=== PATIENT | male | born 1955 | race Caucasian/White ===

== ENCOUNTER 2020-09-09 11:25 | Emergency (ER) | payer MEDICARE, OTHER, SELFPAY ==
[2020-09-09 11:32] VITALS: BP 102/59; PULSE 82; RESP 18; TEMP 36.7; O2SAT 94; BMI 38.0
[2020-09-09 11:51] VITALS: BP 195/104; PULSE 77; RESP 18; TEMP 37.3; O2SAT 94; BMI 35.1
[2020-09-09 12:29] LABS: UTC Strep Screen (Rapid) Positive (Negative)
--- NOTE | 2020-09-09 12:37 | HMH.EDUTC ---
[facility] [place] Clinical Impression: Strep throat Back pain Qualifiers: Back pain location: low back pain Chronicity: acute Back pain laterality: midline Sciatica presence: without sciatica Qualified Code(s): M54.5 - Low back pain Disposition: Home, Self-Care Condition on Discharge: Good Additional Instructions: Start antibiotics today be sure to take it as ordered with the full length of time although you should start feeling better in 24-48 hours. Change toothbrush and toothpaste 24-48 hours after starting antibiotics Tylenol or Motrin as needed for fever or pain Encourage fluids, water, Gatorade, Powerade, try cold fluids, popsicles, ice cream will make it feel better You are contagious for 24 hours. Avoid kissing anyone, no eating or drinking after anyone. You are contagious. Follow-up the ER for new or worsening symptoms or no noticeable improvement over the next 24-48 hours. Follow-up with PCP this week. continue kelfex Prescriptions: predniSONE [Prednisone 20mg Tab] 20 mg PO BID #10 tab Transmission Status: Pending to [id number] Referrals: Gurmeet Dolan MD [Primary Care Provider] - Time of Disposition: 13:05 Medical Decision Making - Marc Inquiry Pt receiving controlled substance: No Vital Signs: 09/09/20 11:32 09/09/20 11:51 Temperature 98.1 F 99.2 F Temperature Source Oral Oral Pulse Rate [Left Radial] 82 77 Respiratory Rate 18 18 Blood Pressure [Right Arm] 102/59 L 195/104 H Blood Pressure Mean [Right Arm] 73 134 Blood Pressure Source [Right Arm] Automatic Cuff Blood Pressure Position [Right Arm] Sitting 02 Sat by Pulse Oximetry 94 L 94 L Oxygen Delivery Method Room Air Room Air - Lab Data Lab Results 09/09/20 11:58: Strep Scn Rapid [facility] Positive A 09/09/20 12:42: Urine Color Yellow, Urine Appearance Clear, Urine pH 6.0, Ur Specific Simms 1.010, Urine Protein Negative, Urine Glucose (UA) Negative, Urine Ketones Negative, Urine Blood Negative, Urine Nitrate Negative, Urine Bilirubin Negative, Urine Urobilinogen 2, Ur Leukocyte Esterase Negative Orders (Tests/Meds): ORDERS Category Date Time Status Covid-19 Nasal PCR ([facility]) Routine Lab 09/09/20 12:00 Received [facility] H[place] - General Chief complaint: Urgent Treatment Center Stated complaint: lower back pain Time Seen by Provider: 09/09/20 12:58 Mode of Arrival: Ambulatory Source of Information: Patient Limitations: No Limitations Description of Symptoms (Recalled from Triage Doc. by RN): pt wants to be seen for lower back pain that he is unable to get any relief from. no injury has occured. its dull and achey pain 8/10. pt took tylenol this am without relief. pt is also running a low grade fever and said he had a sore throat the past two days, as well as, a lingering sinus LOWERY. HEENT Symptoms (Recalled from RN notes): No Resp Symptoms (Recalled from RN notes): No Skin Symptoms (Recalled from RN notes): No MS Symptoms (Recalled from RN notes): Yes (lower back pain) Functional Status (Recalled from RN notes): na - History of Present Illness Provider Complaint: 64 yr old male presents for low back pain and he is unable to get any relief from pain. no injury has occured. its dull and achey pain 8/10. pt took tylenol this am without relief.pt states he is also running a low grade fever and said he had a sore throat the past two days, as well as, a lingering sinus LOWERY. pt states he has taken keflex for ingrown toe nail - Related Data Previous Rx's Medication Instructions Recorded omeprazole 20 mg capsule,delayed 20 mg PO DAILY #90 cap 04/17/20 release colchicine 0.6 mg capsule 0.6 mg PO DAILY PRN #20 cap 07/05/20 sulfamethoxazole 800 1 tab PO BID 10 Days #20 tab 09/07/20 mg-trimethoprim 160 mg tablet predniSONE [Prednisone 20mg 20 mg PO BID #10 tab 09/09/20 Tab] Allergies Allergy/AdvReac Type Severity Reaction Status Date / Time Penicillins [PENICILLINS] Allergy Mild Verified 09/09/20
[2020-09-09 12:43] LABS: Apearance,Urine Clear (Clear); Color,Urine Yellow (Yellow)
[2020-09-09 12:44] LABS: Bilirubin,Urine Negative (Negative); Blood, Urine Negative (Negative); Glucose,Urine (UA) Negative (Negative); Ketones,Urine Negative (Negative); Protein,Urine Negative (Negative); UTC Leukocyte Esterase,Urine Negative (Negative); UTC Nitrate,Urine Negative (Negative); Urobilinogen,Urine 2 EU/dl (0.2)
[2020-09-09 13:08] VITALS: BP 182/101; PULSE 81; RESP 18; TEMP 37.2
== END 2020-09-09 13:10 | disposition home or self-care (01) ==
PROVIDERS: Emergency Provider Nurse Practitioner Family; PCP Emergency Medicine
DX: Z20.822 Contact with and (suspected) exposure to COVID-19 (principal); J02.0 Streptococcal pharyngitis; M54.5 Low back pain; K21.9 Gastro-esophageal reflux disease without esophagitis; I10 Essential (primary) hypertension; Z79.899 Other long term (current) drug therapy
CPT/HCPCS: G0463; 81003; 87880; 99202; U0003

== ENCOUNTER 2020-09-15 13:07 | Emergency (ER) | payer MEDICARE, OTHER, SELFPAY ==
[2020-09-15 13:24] VITALS: BP 158/92; PULSE 84; RESP 16; TEMP 36.9; O2SAT 95; BMI 35.1
--- NOTE | 2020-09-15 13:33 | XR_ITS ---
PROCEDURE: XR CHEST 2V CLINICAL HISTORY: fever, cough COMPARISON: CR CXR1 CHEST-PORTABLE from 08/01/2016 FINDINGS: The cardiomediastinal silhouette and pulmonary vascularity are within normal limits. The lungs are clear without infiltrates, suspicious nodules, or pleural effusions. Degenerative changes of the visualized thoracic spine.. IMPRESSION: No acute findings. Dictated by: Aziza West 09/15/2020 14:56 Aziza West in [place] 09/15/2020 14:56
[2020-09-15 13:40] LABS: UTC Strep Screen (Rapid) Positive (Negative)
--- NOTE | 2020-09-15 13:53 | HMH.EDUTC ---
[facility] [place] Clinical Impression: Strep throat Disposition: Home, Self-Care Condition on Discharge: Good Instructions: Strep Throat, DI for Strep Throat Additional Instructions: Drink plenty of fluids. Take tylenol or ibuprofen for pain or fever. Take the medications as directed. Follow up with your regular doctor. GO TO THE ER FOR ANY WORSENING SYMPTOMS Throw your tooth brush away and get a new one in a day or so after starting the medications. Prescriptions: Cefdinir [Omnicef 300mg Capsule] 300 mg PO BID #20 cap Transmission Status: Received by [id number] Referrals: Gurmeet Dolan MD [Primary Care Provider] - Time of Disposition: 13:56 Medical Decision Making - Medical Records Medical records reviewed: No: I reviewed the patient's medical records. - Marc Inquiry Pt receiving controlled substance: No Vital Signs: 09/15/20 13:24 09/15/20 14:05 Temperature 98.4 F 98 F Temperature Source Oral Pulse Rate 87 Pulse Rate [Right] 84 Respiratory Rate 16 18 Blood Pressure 146/87 H Blood Pressure [Right Arm] 158/92 H Blood Pressure Mean [Right Arm] 114 Blood Pressure Source [Right Arm] Automatic Cuff Blood Pressure Position [Right Arm] Sitting 02 Sat by Pulse Oximetry 95 Oxygen Delivery Method Room Air - Lab Data Lab results reviewed: Yes: I reviewed the patient's lab results. Lab Results 09/15/20 13:28: Strep Scn Rapid Clinic Positive A [facility] [place] - General Stated complaint: fever Time Seen by Provider: 09/15/20 13:53 Mode of Arrival: Ambulatory Source of Information: Patient Limitations: No Limitations Description of Symptoms (Recalled from Triage Doc. by RN): pt c/o abd pain, N/V, LOWERY, fever and high bp. HEENT Symptoms (Recalled from RN notes): Yes (LOWERY) Resp Symptoms (Recalled from RN notes): No Skin Symptoms (Recalled from RN notes): No MS Symptoms (Recalled from RN notes): No Functional Status (Recalled from RN notes): na - History of Present Illness Provider Complaint: He states that he was diagnosed with strep throat here about 1 week ago. He has finished the medication that he was prescribed. He states that he is no better. - Related Data Previous Rx's Medication Instructions Recorded omeprazole 20 mg capsule,delayed 20 mg PO DAILY #90 cap 04/17/20 release colchicine 0.6 mg capsule 0.6 mg PO DAILY PRN #20 cap 07/05/20 sulfamethoxazole 800 1 tab PO BID 10 Days #20 tab 09/07/20 mg-trimethoprim 160 mg tablet predniSONE [Prednisone 20mg 20 mg PO BID #10 tab 09/09/20 Tab] Cefdinir [Omnicef 300mg Capsule] 300 mg PO BID #20 cap 09/15/20 Allergies Allergy/AdvReac Type Severity Reaction Status Date / Time Penicillins [PENICILLINS] Allergy Mild Verified 09/09/20 11:57 - Worker's Comp Is this a Worker's Comp case?: No [facility] History - Hepatitis A Screen Drug use history?: No High risk sexual behaviors?: No History of sexually transmitted infection?: No Currently employed?: No Childcare worker?: No Do you have indoor plumbing?: Yes Do you have electricity?: Yes Attestation statement:: This patient has been screened for Hepatitis A risk factors. I have reviewed the patient's past medical history: Yes Medical History: Reports:: Gastroesophageal Reflux Disease(GERD), Hypertension Comment: Gout Laterality Cases: Bilateral: Tonsillectomy Other Surgeries: Yes: Other Amputation: No Fractures: Yes - Social History Smoking Status: Unknown if ever smoked Alcohol Intake: never Alcohol Intake Frequency:: a few times a week Substance Use Type: denies use Occupational Status: other Family Hx:: Cancer, Hypertension, Coronary Artery Disease ROS Obtained: Yes All systems reviewed & no additional complaints - Constitutional Constitutional: Reports chills, Reports fever(s), Reports poor appetite, Reports malaise - Eyes Eyes: Denies eye discharge - ENT Ears, Nose, Mouth, and Throat: Reports as per HPI - Cardi
[2020-09-15 14:05] VITALS: BP 146/87; PULSE 87; RESP 18; TEMP 36.6
== END 2020-09-15 14:05 | disposition home or self-care (01) ==
PROVIDERS: Emergency Provider Nurse Practitioner Family; PCP Emergency Medicine
DX: J02.0 Streptococcal pharyngitis (principal)
CPT/HCPCS: G0463; 71046; 87880; 99202

== ENCOUNTER → 2020-09-26 14:57 | Outpatient (CLI) | payer MEDICARE, OTHER, SELFPAY ==
--- NOTE | 2020-09-26 15:19 | XR_ITS ---
PROCEDURE: XR CHEST 2V CLINICAL HISTORY: SOA Shortness of air with weakness COMPARISON: CR CXR1 CHEST-PORTABLE from 08/01/2016 CR XR CHEST 2V from 09/15/2020 FINDINGS: The cardiomediastinal silhouette and pulmonary vascularity are within normal limits. The lungs are clear without infiltrates, suspicious nodules, or pleural effusions. No acute bony abnormalities. IMPRESSION: No acute findings. Dictated by: Christian Guzman MD 09/26/2020 16:02 Christian Guzman MD in [place] 09/26/2020 16:02
[2020-09-26 19:00] LABS: Basophils # 0.1 K/mm3 (0-0.2); Basophils % 0.8 % (0.1-2.0); Eosinophils # 0.1 K/mm3 (0.0-0.4); Eosinophils % 1.6 % (0.1-12.0); Hematocrit 51.1 % (42.0-52.0); Lymphocytes # 2.4 K/mm3 (0.7-4.5); Lymphocytes % 26.7 % (10-50); Mean Corpuscular HGB Conc 33.4 g/dL (31.8-35.4); Mean Corpuscular Hemoglobin 30.4 pg (27.0-31.2); Mean Corpuscular Volume 91.2 fl (80-94); Mean Platelet Volume 8.1 fl (7.4-10.4); Monocytes # 0.6 K/mm3 (0.1-1.0); Monocytes % 6.5 % (1.7-9.3); Neutrophils # 5.8 K/mm3 (1.8-7.8); Neutrophils % 64.4 % (37.0-80.0); Platelet Count 264 K/mm3 (142-424); Red Cell Distribution Width 12.8 % (11.5-17.5); White Blood Count 9.1 K/mm3 (4.8-10.8)
[2020-09-26 19:33] LABS: Chloride 102 mmol/L (98-107); Potassium 4.7 mmoL/L (3.5-5.1); Sodium 138 mmol/L (136-145)
[2020-09-26 19:35] LABS: Alanine Aminotransferase 57 U/L (12-78); Albumin Level 4.4 g/dl (3.5-5.0); Albumin/Globulin Ratio 1.8 (1.1-1.8); Alkaline Phosphatase 75 U/L (38-126); Anion Gap 12.7 mEq/L (5-15); Aspartate Amino Transferase 52 U/L (17-59); Bilirubin,Total 0.7 mg/dl (0.2-1.3); Blood Urea Nitrogen 21 mg/dl (9-20); Carbon Dioxide 28 mmol/L (22.0-30.0); Estimated Glomerular Filt Rate 67 ml/min (>60); GFR (African American) 81 ML/MIN (>60); Globulin 2.5 g/dL (1.3-3.2); Total Protein,Serum 6.9 g/dl (6.3-8.2)
[2020-09-26 19:36] LABS: Calcium 9.5 mg/dl (8.4-10.2); Chol/HDL Ratio 4.2 (1-3.5); Cholesterol 174 mg/dl (140-200); Glucose 125 mg/dl (74-100); HDL Cholesterol 41 mg/dl (40-60); Triglycerides 147 mg/dl (30-150); VLDL Cholesterol 29 mg/dL (0-40)
[2020-09-26 19:47] LABS: Direct LDL Cholesterol 111.78 mg/dL (100-129)
[2020-09-26 19:52] LABS: T4 (Thyroxine) 7.6 ug/dl (5.53-11.0)
[2020-09-26 20:06] LABS: Thyroid Stimulating Hormone 2.33 uIU/mL (0.465-4.68)
[2020-09-29 06:19] LABS: PSA, Free 0.23 ng/mL; Prostate Specific Ag 0.8 ng/mL (0.0-4.0)
== END ==
PROVIDERS: PCP Emergency Medicine; Visit Provider Nurse Practitioner Family
DX: R06.02 Shortness of breath (principal); I10 Essential (primary) hypertension; J02.0 Streptococcal pharyngitis; R53.83 Other fatigue; R69 Illness, unspecified; R42 Dizziness and giddiness; Z20.822 Contact with and (suspected) exposure to COVID-19
CPT/HCPCS: 71046; 80053; 80061; 84153; 84154; 84436; 84443; 85025; 93225; 93226; U0003

== ENCOUNTER → 2020-10-05 14:16 | Outpatient (CLI) | payer MEDICARE, OTHER, SELFPAY ==
--- NOTE | 2020-10-05 14:16 | CA_ITS ---
APPROVED REPORT Exam: Exercise Treadmill Technologist: Shelby Ferguson, Ht: 5 ft 11 in Wt: 252 lbs BSA: 2.33 m2 HR: 71 bpm BP: 161/91 mmHg Rhythm: NSR/NSST/ABNS Medical History Medical History: Hyperlipidemia Medications: ColCHIcine,,,,, OmeprazLE,,,,, Stress Test Details Test: Roosevelt HR Resting HR: 94 bpm Max Heart Rate (APMHR): 154.509034 bpm Max HR Achieved: 130 bpm Target HR (85% APMHR): 130.280053 bpm % of APMHR: 84.42 Recovery HR: 93 bpm BP Resting BP: 161/91 mmHg Max BP: 212/94 mmHg Recovery BP: 163.0/96.0 mmHg ECG Resting ECG: NSR/NSST/ABNS Clinical Exercise duration: 05:24 min Highest Stage Achieved: Exercise capacity: 7.0 METs Stress ECG Conclusion Pt excerised 5:24 on Roosevelt Protocol with max HR 130 which is 84%PM for age. Max BP 212/94. MET 7.0. Test stopped due to SOA and fatigue. No CP. Occ isolated PVC. Within normal ST response to excerise. Normal GXT to HR achieved. GXT only, no images. Test Summary REST . . . . . . . Sitting REST . . . . . . . Standing REST 06:00 0.0 0.0 94 . 161/ 91 . . Stage 1 01:00 10.0 1.7 96 . . . . Stage 1 02:00 10.0 1.7 109 . . . . Stage 1 03:00 10.0 1.7 106 . 178/ 90 . . Stage 2 01:00 12.0 2.5 120 . . . . Stage 2 02:00 12.0 2.5 127 . . . . Stage 2 02:24 12.0 2.5 130 . 212/ 94 . Stop exercise at 05:24 RECOVERY 01:00 0.0 0.0 113 . . . . RECOVERY 02:00 0.0 0.0 86 . 163/ 96 . . RECOVERY 03:00 0.0 0.0 85 . 188/100 . . RECOVERY 04:00 0.0 0.0 84 . 188/100 . . RECOVERY 05:00 0.0 0.0 81 . 163/ 99 . . RECOVERY 05:58 0.0 0.0 79 . 152/101 . . Electronically signed by : Fer Roman, 10/06/2020 19:09:02
== END ==
PROVIDERS: PCP Emergency Medicine; Visit Provider Nurse Practitioner Family
DX: R42 Dizziness and giddiness (principal); R06.02 Shortness of breath; R53.1 Weakness
CPT/HCPCS: 93017

== ENCOUNTER → 2020-10-11 14:15 | Outpatient (CLI) | payer MEDICARE, OTHER, SELFPAY ==
--- NOTE | 2020-10-11 14:17 | CA_ITS ---
APPROVED REPORT EXAM: Comprehensive 2D, Doppler, and color-flow Echocardiogram Facilities Maintenance Engineer: Cindi Melara RVT Ht: 5 ft 11 in Wt: 252lbs BSA: 2.33 BP: 140/80 mmHg Indications: SOA,DIZZINESS,GERD 2D Dimensions LVOT 1.93 cm (M/F) 1.5-2.5 LA Volume 30.70 mL LA Volume Index 13.23 mL/m2 (M/F) 16-34 M-Mode Dimensions RVDd 2.72 cm (0.9-2.6) LA Diam 4.22 cm (1.9-4.0) LVDd 4.17 cm (3.5-5.7) Ao Diam 2.55 cm (2.0-3.7) LVDs 2.72 cm (3.5-5.7) IVSd 1.38 cm (0.6-1.1) PWd 1.24 cm (0.6-1.1) EF (Teich) 64.40% FS 34.80% EDV (Teich) 77.30 mL TAPSE 2.42 (<1.7) ESV (Teich) 27.50 mL LV Diastology E Decel Time 300.00 (160-240 msec) E/A Ratio 0.6 MED E' 5.20 (< 7 cm/sec) E'/MED E' Ratio 8.21 (>14) LAT E' 6.70 (<10 cm/sec) E/LAT E' Ratio 6.37 (>14) Mitral Valve MV E Max Adan. 43.00 (40-130 cm/s) MV A Velocity 73.00 (40-130 cm/s) E/A Ratio 0.59 MV Decel. Time 300.00 (160-240 ms) MV PHT 88.00 ms Pulmonary Valve PV Peak Velocity 86.00 (50-150 cm/s) Tricuspid Valve TR P. Velocity 234.00 cm/s RAP Estimate 10.00 mmHg RVSP 31.90 mmHg Left Ventricle Left atrium is mildly enlarged, left ventricle is normal size, mild concentric left ventricular hypertrophy, visually estimated ejection fraction 55% with no regional wall motion abnormality, grade 1 diastolic dysfunction seen without tissue Doppler evidence of raise left atrial pressure. Right Ventricle Right atrium is normal size, right ventricle qualitatively mildly enlarged with normal contractility. Aortic Valve Aortic valve is minimally thickened and calcified without Doppler evidence of aortic stenosis or aortic insufficiency. Mitral Valve Mitral valve grossly normal, there is trace mitral regurgitation. Tricuspid Valve Tricuspid valve grossly normal, there is trace tricuspid regurgitation Tricuspid regurgitation jet velocity is inadequate for calculation of the right ventricular systolic pressure. Pulmonic Valve Pulmonic valve is poorly visualized. Great Vessels Aortic root is normal size. Pericardium No significant pericardial effusion noted. Conclusion 1. Mildly enlarged left atrium, normal left ventricular size, mild concentric left ventricular hypertrophy, visually estimated ejection fraction 55% with no regional wall motion abnormality, grade 1 diastolic dysfunction seen without tissue Doppler evidence of raise left atrial pressure. 2. Mildly enlarged right ventricle with normal contractility. 3. Minimally thickened and calcified aortic valve without aortic stenosis or aortic insufficiency. 4. Trace mitral and tricuspid regurgitation. 5. No significant pericardial effusion noted. Electronically signed by : Ricardo Johnston, 10/12/2020 09:22:40
--- NOTE | 2020-10-11 14:17 | CA_ITS ---
APPROVED REPORT Stave Block Roller: Kate Soares RT(R) Laterality: Bilateral Indications: Dizziness post strep throat 1 month ago. Previous smoker Risk Factors Hypertension: Doppler Spectral Velocity Analysis ECA (R) 97.00/12.80 cm/s ECA (L) 98.00/14.20 cm/s dICA (R) 77.50/21.40 cm/s dICA (L) 64.20/21.80 cm/s Fco (R) 76.50/23.50 cm/s Fco (L) 71.10/21.00 cm/s pICA (R) 47.60/13.90 cm/s pICA (L) 86.80/23.20 cm/s dCCA (R) 65.50/15.40 cm/s dCCA (L) 76.30/12.70 cm/s pCCA (R) 75.10/14.80 cm/s pCCA (L) 99.50/15.00 cm/s Vert (R) 48.10/12.80 cm/s Vert (L) 31.70/6.40 cm/s ICA/CCA 1.18 ICA/CCA 1.14 Findings Duplex evaluation demonstrates stenosis of the right proximal internal carotid artery <20% with PSV <140 cm/sec, EDV <100 cm/sec, and IC/CC Ratio <4.0. Duplex evaluation demonstrates stenosis of the left proximal internal carotid artery <20% with PSV <140 cm/sec, EDV <100 cm/sec, and IC/CC Ratio <4.0. Conclusion Duplex evaluation demonstrates stenosis of the right proximal internal carotid artery <20% with PSV <140 cm/sec, EDV <100 cm/sec, and IC/CC Ratio <4.0. Duplex evaluation demonstrates stenosis of the left proximal internal carotid artery <20% with PSV <140 cm/sec, EDV <100 cm/sec, and IC/CC Ratio <4.0. Electronically signed by : Christian Guzman MD 10/11/2020 15:31:15
== END ==
PROVIDERS: PCP Emergency Medicine; Visit Provider Nurse Practitioner Family
DX: R06.02 Shortness of breath (principal); R42 Dizziness and giddiness
CPT/HCPCS: 93306; 93880

== ENCOUNTER → 2020-10-16 07:48 | Outpatient (CLI) | payer SELFPAY ==
--- NOTE | 2020-10-16 07:49 | CT_ITS ---
PROCEDURE: CT HEART W CALCIUM SCORE CLINICAL HISTORY: eval for CAD COMPARISON: No exams were available for comparison TECHNIQUE: Axial images obtained with sagittal and coronal reformats. All CT scans at the facility use one or more dose reduction, viz: automated exposure control, ma/kV adjustment per patient size (including targeted exams where dose is matched to indication, i.e. head), or iterative reconstruction technique. FINDINGS: Coronary artery calcifications core is 172. Moderate calcific plaque burden with high cardiovascular disease risk IMPRESSION: Moderate calcific plaque burden with high cardiovascular disease risk Dictated by: Christian Guzman MD 10/16/2020 10:42 Christian Guzman MD in [place] 10/16/2020 10:42
== END ==
PROVIDERS: PCP Emergency Medicine; Visit Provider Internal Medicine Cardiovascular Disease
DX: Z13.6 Encounter for screening for cardiovascular disorders (principal); R00.2 Palpitations; R42 Dizziness and giddiness; I48.0 Paroxysmal atrial fibrillation; I10 Essential (primary) hypertension; K21.9 Gastro-esophageal reflux disease without esophagitis; R53.1 Weakness; R53.83 Other fatigue; R55 Syncope and collapse
CPT/HCPCS: 75571

== ENCOUNTER → 2020-11-09 08:28 | Outpatient (CLI) | payer MEDICARE, OTHER, SELFPAY ==
[2020-11-09 08:57] LABS: Blood Urea Nitrogen 15 mg/dl (9-20); Calcium 9.4 mg/dl (8.4-10.2); Carbon Dioxide 30 mmol/L (22.0-30.0); Chloride 108 mmol/L (98-107); Estimated Glomerular Filt Rate 55 ml/min (>60); GFR (African American) 67 ML/MIN (>60); Glucose 134 mg/dl (74-100); Sodium 144 mmol/L (136-145)
[2020-11-09 09:06] LABS: NT Pro Brain Natriuretic Pep. 67.9 pg/mL (0-125)
== END ==
PROVIDERS: Visit Provider Internal Medicine Cardiovascular Disease
DX: E66.9 Obesity, unspecified (principal); G47.33 Obstructive sleep apnea (adult) (pediatric); I10 Essential (primary) hypertension; I48.0 Paroxysmal atrial fibrillation; R53.1 Weakness; R53.83 Other fatigue; R55 Syncope and collapse; R06.02 Shortness of breath; Z68.34 Body mass index [BMI] 34.0-34.9, adult; Z87.891 Personal history of nicotine dependence
CPT/HCPCS: 36415; 80048; 83880

== ENCOUNTER → 2020-11-15 10:17 | Outpatient (CLI) | payer MEDICARE, OTHER, SELFPAY ==
[2020-11-15 11:42] LABS: Blood Urea Nitrogen 17 mg/dl (9-20); Calcium 9.5 mg/dl (8.4-10.2); Carbon Dioxide 31 mmol/L (22.0-30.0); Chloride 105 mmol/L (98-107); Estimated Glomerular Filt Rate 67 ml/min (>60); GFR (African American) 81 ML/MIN (>60); Glucose 101 mg/dl (74-100); Sodium 140 mmol/L (136-145)
== END ==
PROVIDERS: Visit Provider Internal Medicine Cardiovascular Disease
DX: I10 Essential (primary) hypertension (principal); I48.0 Paroxysmal atrial fibrillation; K21.9 Gastro-esophageal reflux disease without esophagitis
CPT/HCPCS: 80048

== ENCOUNTER → 2020-11-21 13:20 | Outpatient (CLI) | payer MEDICARE, OTHER, SELFPAY | PROVIDERS: PCP Emergency Medicine; Visit Provider Specialist | DX: G47.33 Obstructive sleep apnea (adult) (pediatric) (principal) | CPT/HCPCS: G0399 ==

== ENCOUNTER → 2020-12-05 10:25 | Outpatient (POV) | payer MEDICARE, OTHER, SELFPAY | PROVIDERS: Visit Provider Dermatology | DX: Z00.00 Encounter for general adult medical examination without abnormal findings (principal) ==

== ENCOUNTER → 2021-05-15 10:54 | Outpatient (POV) | payer MEDICARE, OTHER, SELFPAY | PROVIDERS: Visit Provider Dermatology | DX: Z00.00 Encounter for general adult medical examination without abnormal findings (principal) ==

== ENCOUNTER → 2021-07-13 14:29 | Outpatient (CLI) | payer MEDICARE, OTHER, SELFPAY ==
--- NOTE | 2021-07-13 14:30 | MM_ITS ---
PROCEDURE INFORMATION: Exam: Right Diagnostic Breast Tomosynthesis Exam date and time: 07/13/2021 2:30 PM Age: 65 years old Clinical indication: Palpable abnormality in the right breast TECHNIQUE: Imaging protocol: Right Diagnostic tomosynthesis and 2D mammography including computer-aided detection (CAD) when performed. Unilateral or bilateral exam. COMPARISON: No relevant prior studies available. FINDINGS: MAMMOGRAPHY: The breast tissue is composed of scattered areas of fibroglandular density. The findings compatible with benign gynecomastia. A skin marker was placed over the palpable abnormality in the right upper inner quadrant. The spot compression views demonstrate predominantly adipose tissue. There is no stellate mass, architectural distortion or suspicious microcalcifications to suggest malignancy. No skin thickening or axillary adenopathy. IMPRESSION: Patient to return for right breast ultrasound for full evaluation of the patient's complaint of a palpable abnormality ASSESSMENT: BI-RADS Category 1: Negative
== END ==
PROVIDERS: PCP Emergency Medicine; Visit Provider Nurse Practitioner Family
DX: N64.59 Other signs and symptoms in breast (principal)
CPT/HCPCS: 77061; 77065; G0279

== ENCOUNTER → 2021-07-31 13:42 | Outpatient (CLI) | payer MEDICARE, OTHER, SELFPAY ==
--- NOTE | 2021-07-31 13:48 | US_ITS ---
PROCEDURE INFORMATION: Exam: US Right Breast, Complete Exam date and time: 07/31/2021 1:48 PM Age: 65 years old Clinical indication: Palpable abnormality in the right breast TECHNIQUE: Imaging protocol: Complete ultrasound of all four quadrants of the Right breast and the retroareolar regions, including ultrasound of the axilla when performed. COMPARISON: MG MM DIG MAMM DX UNILAT RT CAD 07/13/2021 2:30 PM FINDINGS: Breast: Sonographic images of the right breast including the retroareolar region, all 4 quadrants and the axilla do not demonstrate any solid or cystic masses. Benign retroareolar gynecomastia is present . No architectural distortion or acoustical shadowing. No skin thickening or axillary adenopathy. Other findings: Mammography performed 07/13/2021 did not demonstrate any suspicious findings. IMPRESSION: Palpable abnormality in the right breast corresponds both mammographically and sonographically to benign gynecomastia and benign adipose tissue. Further evaluation of a palpable abnormality should be based on clinical grounds regardless of radiographic findings or lack thereof. ASSESSMENT: BI-RADS Category 2: Benign
== END ==
PROVIDERS: PCP Emergency Medicine; Visit Provider Nurse Practitioner Family
DX: R92.8 Other abnormal and inconclusive findings on diagnostic imaging of breast (principal)
CPT/HCPCS: 76641

== ENCOUNTER 2021-08-09 19:18 | Emergency (ER) | payer MEDICARE, OTHER, SELFPAY ==
--- NOTE | 2021-08-09 19:15 | ECG_ITS ---
APPROVED REPORT Exam: Resting ECG HR:54 bpm ECG Measurements Heart Rate 54 AXES CA 178 P 62 QRSd 96 QRS 51 QT 420 T 64 QTc 405 Conclusion SINUS BRADYCARDIA BORDERLINE ECG UNCONFIRMED REPORT Electronically signed by : Fer Roman MD 08/10/2021 19:20:01
[2021-08-09 19:19] VITALS: BP 174/94; PULSE 52; RESP 22; TEMP 36.8; O2SAT 94; BMI 33.5
[2021-08-09 19:31] VITALS: BP 164/85; PULSE 58; RESP 21; O2SAT 95
--- NOTE | 2021-08-09 19:42 | XR_ITS ---
PROCEDURE INFORMATION: Exam: XR Chest Exam date and time: 08/09/2021 7:42 PM Age: 65 years old Clinical indication: Pain; Left-sided; Patient HX: Feels like heart is being squeezed all day today. ; Additional info: Chest pain TECHNIQUE: Imaging protocol: XR of the chest. Views: 2 views. Total images: 2 COMPARISON: CR XR CHEST 2V 09/26/2020 3:20 PM FINDINGS: Lungs: Low lung volumes. No gross pulmonary infiltrates or edema pattern. Pleural spaces: No pleural effusion. No pneumothorax. Heart/Mediastinum: Heart size normal. Question mild prominence of the central pulmonary arteries which may indicate pulmonary arterial hypertension. No tracheal/mediastinal shift. Diaphragm: Mild chronic elevation of the right hemidiaphragm. Bones/joints: No acute osseous abnormalities. IMPRESSION: 1. No acute process is evident. 2. Question mild prominence of the central pulmonary arteries which may indicate pulmonary arterial hypertension. 3. Low lung volumes and mild chronic elevation of the right hemidiaphragm.
--- NOTE | 2021-08-09 19:56 | HMH.EDCP ---
ED Disposition Clinical Impression: Unstable angina pectoris Disposition: Home, Self-Care Condition on Discharge: Good Instructions: DI for Angina Additional Instructions: see card for follow up and recheck ed if any problems Referrals: Gurmeet Dolan MD [Primary Care Provider] - Hadley Maharaj MD [Staff Physician] - - Critical Care Critical Care Time: No Attestation: On 08/09/21, the high probability of a clinically significant, sudden or life threatening deterioration of the following system(s) required my full and direct attention, intervention and personal management. The time I documented below is in addition to time spent performing reported procedures but includes the following listed in this critical care notation. Medical Decision Making - Medical Records Medical records reviewed: Yes: I reviewed the patient's medical records. - Marc Inquiry Pt receiving controlled substance: No Vital Signs: 08/09/21 19:19 Temperature 98.2 F Temperature Source Oral Pulse Rate [Right Brachial] 52 L Respiratory Rate 22 Blood Pressure [Right Arm] 174/94 H Blood Pressure Mean [Right Arm] 120 Blood Pressure Source [Right Arm] Automatic Cuff Blood Pressure Position [Right Arm] Sitting 02 Sat by Pulse Oximetry 94 L Oxygen Delivery Method Room Air - Lab Data Lab results reviewed: Yes: I reviewed the patient's lab results. Lab Results 08/09/21 19:22: WBC 8.5, RBC 5.27, Hgb 16.5, Hct 48.5, MCV 92.1, MCH 31.3 H, MCHC 33.9, RDW 12.9, Plt Count 222, MPV 7.6, Neut % (Auto) 55.7, Lymph % (Auto) 33.2, [place] % (Auto) 7.9, Eos % (Auto) 2.4, Baso % (Auto) 0.8, Neut # (Auto) 4.7, Lymph # (Auto) 2.8, [place] # (Auto) 0.7, Eos # (Auto) 0.2, Baso # (Auto) 0.1, ESR 7 08/09/21 19:22: Sodium 140, Potassium 4.3, Chloride 102, Carbon Dioxide 29, Anion Gap 13.3, BUN 21 H, Creatinine 1.40 H, Estimated Creat Clear 79, Estimated GFR 51 L, Est GFR ( Amer) 61, Glucose 100, Calcium 9.0, Troponin I < 0.01, C-Reactive Protein 2.5 08/09/21 19:22: Total Bilirubin 0.5, Direct Bilirubin 0.2, Conjugated Bilirubin 0.0, Indirect Bilirubin 0.3, Unconjugated Bilirubin 0.3, AST 68 H, ALT 61, Alkaline Phosphatase 72, Total Protein 6.6, Albumin 4.3 08/09/21 19:22: NT-Pro-B Natriuret Pep 42.6 Result diagrams: 08/09/21 19:22 08/09/21 19:22 Orders (Tests/Meds): ORDERS Category Date Time Status Troponin I Q3H Lab 08/09/21 22:45 Ordered Troponin I Q3H Lab 08/10/21 01:45 Ordered - Radiology Data #1 Image(s): Chest Image Reviewed: Yes I have reviewed radiologist's interpretation Preliminary Findings: Normal/NAD - ECG Data Tracing #1 Normal Sinus Rhythm: Yes Ischemic changes: non-specific ST-T wave changes - Physician Consults Physician Consulted: teddy Reason -: Pt condition Medical Decision Narrative: pt with prob angina and will have pt see card and add imdur needs ht cath - pt desires to see card as op Chest Pain HPI - General Chief Complaint: Chest Pain Stated Complaint: chest pain Time Seen by Provider: 08/09/21 19:56 Mode of Arrival: Family Vehicle Source of Information: Patient, Medical Record Limitations: No Limitations Description of Symptoms (Recalled from ER Triage Doc. by RN): Patient states after spending the day moving and working on stuff at home, he was sitting down trying to relax and approx 1 hour ago he started having left side anterior chest pain directly above his nipple line. When asked about radiation, he said not really, then said his right hand indirectly hurts intermittently along with this. denies n/v/d. states his breathing is different but not really soa. took an aspirin full strength prior to arrival. denies other comorbities other than hypertension. - History of Present Illness HPI narrative: pt with episode of chest pain - tightness and lasted about 30 min and now resolved - has card risk factors and compliant with meds - MD complaint: chest pain indicative of cardiac
[2021-08-09 20:06] LABS: Alanine Aminotransferase 61 U/L (12-78); Albumin Level 4.3 g/dl (3.5-5.0); Alkaline Phosphatase 72 U/L (38-126); Anion Gap 13.3 mEq/L (5-15); Aspartate Amino Transferase 68 U/L (17-59); Bilirubin,Direct 0.2 mg/dl (0.0-0.4); Bilirubin,Indirect 0.3 mg/dL (0.0-0.9); Bilirubin,Total 0.5 mg/dl (0.2-1.3); Bilirubin,Unconjugated 0.3 mg/dL (0.0-1.1); Blood Urea Nitrogen 21 mg/dl (9-20); Carbon Dioxide 29 mmol/L (22.0-30.0); Chloride 102 mmol/L (98-107); Creatinine Clearance Estimated 79 mL/min (50-200); Estimated Glomerular Filt Rate 51 ml/min (>60); GFR (African American) 61 ML/MIN (>60); Glucose 100 mg/dl (74-100); Potassium 4.3 mmoL/L (3.5-5.1); Sodium 140 mmol/L (136-145); Total Protein,Serum 6.6 g/dl (6.3-8.2)
[2021-08-09 20:11] LABS: C-Reactive Protein 2.5 mg/L (0-4)
[2021-08-09 20:17] LABS: NT Pro Brain Natriuretic Pep. 42.6 pg/mL (0-125)
[2021-08-09 20:20] LABS: Troponin I < 0.01 ng/ml (0.00-0.034)
[2021-08-09 20:31] VITALS: BP 115/91; PULSE 70; RESP 18; O2SAT 96
[2021-08-09 20:33] LABS: Basophils # 0.1 K/mm3 (0-0.2); Basophils % 0.8 % (0.1-2.0); Eosinophils # 0.2 K/mm3 (0.0-0.4); Eosinophils % 2.4 % (0.1-12.0); Hematocrit 48.5 % (42.0-52.0); Hemoglobin 16.5 g/dL (14.1-18.0); Lymphocytes # 2.8 K/mm3 (0.7-4.5); Lymphocytes % 33.2 % (10-50); Mean Corpuscular HGB Conc 33.9 g/dL (31.8-35.4); Mean Corpuscular Hemoglobin 31.3 pg (27.0-31.2); Mean Corpuscular Volume 92.1 fl (80-94); Mean Platelet Volume 7.6 fl (7.4-10.4); Monocytes # 0.7 K/mm3 (0.1-1.0); Monocytes % 7.9 % (1.7-9.3); Neutrophils # 4.7 K/mm3 (1.8-7.8); Neutrophils % 55.7 % (37.0-80.0); Platelet Count 222 K/mm3 (142-424); Red Blood Count 5.27 M/mm3 (4.60-6.20); Red Cell Distribution Width 12.9 % (11.5-17.5); White Blood Count 8.5 K/mm3 (4.8-10.8)
[2021-08-09 21:06] LABS: Erythrocyte Sedimentation Rate 7 mm/hr (0-20)
[2021-08-09 21:33] VITALS: BP 173/94; PULSE 70; RESP 14; O2SAT 96
[2021-08-09 22:28] VITALS: BP 123/75; PULSE 82; RESP 16; TEMP 36.8; O2SAT 98
== END 2021-08-09 22:30 | disposition home or self-care (01) ==
PROVIDERS: Emergency Provider Emergency Medicine; PCP Emergency Medicine
DX: I20.0 Unstable angina (principal); I11.9 Hypertensive heart disease without heart failure; E78.5 Hyperlipidemia, unspecified; Z79.899 Other long term (current) drug therapy
CPT/HCPCS: 71046; 80048; 80076; 83880; 84484; 85025; 85651; 86140; 93005; 99283

== ENCOUNTER → 2021-08-13 10:33 | Outpatient (CLI) | payer MEDICARE, OTHER, SELFPAY | PROVIDERS: Visit Provider Physician Assistant | DX: I10 Essential (primary) hypertension (principal); I20.0 Unstable angina; I48.0 Paroxysmal atrial fibrillation; K21.9 Gastro-esophageal reflux disease without esophagitis; Z01.812 Encounter for preprocedural laboratory examination; Z11.52 Encounter for screening for COVID-19 | CPT/HCPCS: C9803; U0003; U0005 ==

== ENCOUNTER 2021-08-14 08:27 | Day surgery (SDC) | payer MEDICARE, OTHER, SELFPAY ==
[2021-08-14] VITALS (9 sets, daily range): BP systolic 113–150; BP diastolic 68–92; PULSE 46–78; RESP 18–20; TEMP 36.7; O2SAT 94–96; BMI 35.5
--- NOTE | 2021-08-14 07:04 | IR_ITS ---
APPROVED REPORT Patient Location: Outpatient PROCEDURES Left heart catheterization Left ventriculogram Selective coronary angiogram INDICATION Crescendo angina pectoris, Numerous risk factors for coronary disease Informed consent was obtained prior to the procedure. COMPLICATIONS None Estimated Blood Loss: Less than 10 mls TECHNIQUE One percent lidocaine used to anesthetize the right anterior aspect of the wrist. The right radial artery was accessed via the Seldinger technique. A 6 Guamanian sheath was placed in the right radial artery. 2.5 mg of verapamil, 800 mcg of nitroglycerin, 1mg Lidocaine and 5000 U Heparin were given through the arterial sheath. The papa catheter was also used to perform left heart catheterization, left ventriculogram and selective coronary angiogram. At the end of the procedure the sheath was removed good hemostasis was achieved using Traclet band, patient was transferred to the postop holding area in stable condition. ANGIOGRAPHIC RESULTS The left main artery Normal The left anterior descending artery Has proximal and mid vessel 10 to 20% stenoses The circumflex artery Large dominant with mild diffuse 10% luminal irregularities The right coronary artery Nondominant mild 10% luminal irregularities The SALAZAR ventriculogram reveals Normal 65% The left ventricular end-diastolic pressure Elevated at 20-25 mmHg IMPRESSION Mild nonflow limiting coronary disease Normal ejection fraction Elevated LVEDP consistent with diastolic dysfunction PLAN 1. Treatment of diastolic dysfunction which is likely etiology for patient's angina 2. Risk factor modification 3. Avoidance of tobacco products Electronically signed by : Hadley Maharaj MD 08/14/2021 10:58:50
== END 2021-08-14 13:52 | disposition hospice, home (50) ==
LOC: CATHLAB 08:28
PROVIDERS: PCP Emergency Medicine; Visit Provider Internal Medicine
DX: I10 Essential (primary) hypertension (principal); I25.110 Atherosclerotic heart disease of native coronary artery with unstable angina pectoris; I48.0 Paroxysmal atrial fibrillation; K21.9 Gastro-esophageal reflux disease without esophagitis
CPT/HCPCS: 93458; 99152; C1725; C1760; C1769; J1644; Q9967

== ENCOUNTER → 2021-09-12 08:26 | Outpatient (CLI) | payer MEDICARE, OTHER, SELFPAY ==
--- NOTE | 2021-09-12 08:28 | US_ITS ---
FINAL REPORT CLINICAL HISTORY: ELEVATED LIVER ENZYMES. NICOTINE DEPENDENCE. RN NIGHT. KIDNEY FINDINGS: Sonographic images of the abdomen were obtained. The liver has increased echogenicity consistent with fatty infiltration. The gallbladder has an unremarkable appearance without evidence of gallstones. There is no evidence of biliary ductal dilatation. The common hepatic duct measures 4 mm, which is within normal limits. Limited images of the pancreas are unremarkable. The spleen measures 12.0 cm which is at the upper limit of normal. The right kidney measures 9.1 cm in length. The left kidney measures 11.2 cm in length. There is normal renal echogenicity. There is no evidence of hydronephrosis. The aorta has an unremarkable appearance. Limited images of the inferior vena cava are unremarkable. IMPRESSION: Fatty infiltration of the liver. Spleen measures at the upper limits of normal at 12.0 cm. Reviewed, Interpreted and Dictated by Eusebio Hernandez III, MD Transcribed by Marla Wise Authenticated by Eusebio Hernandez III, MD on 09/12/2021 12:25:52 PM [facility][1]
== END ==
PROVIDERS: PCP Internal Medicine Adolescent Medicine; Visit Provider Internal Medicine Adolescent Medicine
DX: R74.8 Abnormal levels of other serum enzymes (principal); N18.31 Chronic kidney disease, stage 3a; Z87.891 Personal history of nicotine dependence
CPT/HCPCS: 76700

== ENCOUNTER 2021-10-10 09:00 | Outpatient (RCR) | payer MEDICARE, OTHER, SELFPAY ==
--- NOTE | 2021-09-12 10:34 | HMH.PTOPEV ---
PT Outpatient Evaluation Rehab PT Outpatient Evaluation Start: 09/12/21 09:30 Freq: Status: Active Protocol: Document 09/12/21 09:30 GET (Rec: 09/12/21 10:34 GET [id number]) Electronically Signed By Jay Gavin, PT 09/12/21 09:30 Outpatient Therapy Subjective History Subjective History Pt reports insidious onset right sided LBP beginning ~1 yr ago. Pt reports exacerbations occur w/bending and lifting, h/o intermittent LBP, 'but this one isn't going away'. Pt reports no radicular s/s, localized right sided LBP only. Chief Complaint Pain,Stiff Symptom Type Ache,Sharp,Dull Symptoms Relieved By Rest/Positioning Symptoms Aggravated By Bending/Stooping,Physical Activity,Twisting,Lifting Prior Functional Limitations Lifting,Housework,Recreation Activity,Bending/Stooping Current Functional Limitations Lifting,Housework,Recreation Activity,Bending/Stooping Symptom Description Constant but Variable Level of pain today (0-10) 3 Pain scale - at its best (0-10) 2 Pain scale - at its worst (0-10) 5 Lumbopelvic Eval Posture Thoracic Spine Posture Standing Position Flattened Lumbar Spine Posture Standing Position Flattened Palapation tenderness left lumbar spinal tenderness Yes: 2/4 paraspinal tenderness Yes: 3/4 Lumbar/Sacral Palpation Findings Tenderness,Trigger Point, Muscle Guarding Accessory Movement L-spine Vertebrae Accessory Movements Right P/A Pierce that Elicit Symptoms L2 right L3 right L4 right L5 right Range of Motion Lumbar Spine Active Flexion Range of 0-60 Motion (degrees) Lumbar Spine Active Extension Range of 0-15 Motion (degrees) Left Lumbar Spine Lateral Flexion Active 0-20 Range of Motion (degrees) Right Lumbar Spine Lateral Flexion 0-20 Active Range of Motion (degrees) Lumbar Spine ROM Limitations Pain Manual Muscle Test Bilateral Knee Extension Strength Grade 5 Normal Knee Flexion Strength Grade 4 Good Hip Flexion Strength Grade 5 Normal Hip Abduction Strength Grade 5 Normal Hip Adduction Strength Grade 5 Normal Hip External Rotation Strength Grade 5 Normal Hip Internal Rotation Strength Grade 4 Good Hip Extension Strength Grade 5 Normal Gluteus Carlito Strength Grade 5 Normal Extensor Hallucis
== END 2021-10-10 09:05 | disposition home or self-care (01) ==
LOC: PT 09:00
PROVIDERS: PCP Internal Medicine Adolescent Medicine; Visit Provider Internal Medicine Adolescent Medicine
DX: M54.59 Other low back pain (principal)
CPT/HCPCS: 20560; 97010; 97014; 97035; 97110; 97163; G0283

== ENCOUNTER 2021-12-27 14:43 | Inpatient (IN) | payer MEDICARE, OTHER, SELFPAY ==
[2021-12-27] VITALS (9 sets, daily range): BP systolic 98–148; BP diastolic 77–86; PULSE 67–87; RESP 13–21; TEMP 36.9–37.7; O2SAT 92–100; BMI 32.3; BMI 32.4
--- NOTE | 2021-12-27 15:13 | XR_ITS ---
PROCEDURE INFORMATION: Exam: XR Left Elbow Exam date and time: 12/27/2021 6:44 PM Age: 66 years old Clinical indication: Pain; Elbow; Left; Additional info: Elbow pain, swelling, HX of gout, best images possible due to patient unable to straighten arm all the way out TECHNIQUE: Imaging protocol: Radiologic exam of the Left elbow. Views: 3 or more views. COMPARISON: No relevant prior studies available. FINDINGS: Bones/joints: Minor lateral joint line spurring. Minimal olecranon spurring. No fractures. No blastic or lytic lesions. Radiocapitellar alignment and ulnotrochlear alignment are normal. Mild prominence of the posterior fat pad on the lateral view although limited flexion may be partially responsible for this appearance, cannot exclude small joint effusion. No juxta-articular osteopenia or articular erosions to suggest acute infectious/inflammatory arthropathy. Soft tissues: No periostitis or osteolysis. Question mild posterior soft tissue swelling. No radiopaque foreign bodies. Other findings: Proximal radioulnar alignment is normal. IMPRESSION: 1. No acute osseous abnormalities. No radiographic evidence of acute infectious/inflammatory arthropathy. 2. Minor spurring at the lateral joint line and olecranon. 3. Possible small joint effusion although the appearance may be due to limited flexion on the lateral view. 4. Question mild posterior soft tissue swelling.
--- NOTE | 2021-12-27 15:19 | HMH.EDGENADL ---
ED Disposition Clinical Impression: Septic arthritis Qualifiers: Septic arthritis location: elbow Septic arthritis organism: due to unspecified organism Laterality: left Qualified Code(s): M00.9 - Pyogenic arthritis, unspecified Disposition: Admitted as Observation Condition on Discharge: Good - Critical Care Critical Care Time: No Attestation: On 12/27/21, the high probability of a clinically significant, sudden or life threatening deterioration of the following system(s) required my full and direct attention, intervention and personal management. The time I documented below is in addition to time spent performing reported procedures but includes the following listed in this critical care notation. Medical Decision Making - Medical Records Medical records reviewed: Yes: I reviewed the patient's medical records. - Marc Inquiry Pt receiving controlled substance: No Vital Signs: 12/27/21 14:44 12/27/21 15:36 12/27/21 16:01 Temperature 100 F H Temperature Source Oral Pulse Rate 87 77 Pulse Rate [Radial] 77 Respiratory Rate 16 17 16 Blood Pressure 138/85 141/79 H Blood Pressure [Right Arm] 98/78 L Blood Pressure Mean 102 108 Blood Pressure Mean [Right Arm] 84 Blood Pressure Position [Right Arm] Sitting 02 Sat by Pulse Oximetry 98 100 95 Oxygen Delivery Method Room Air Room Air Room Air 12/27/21 16:15 12/27/21 16:31 12/27/21 17:01 Temperature Temperature Source Pulse Rate 86 68 67 Pulse Rate [Radial] Respiratory Rate 16 16 15 Blood Pressure 139/86 148/77 H Blood Pressure [Right Arm] Blood Pressure Mean 103 100 Blood Pressure Mean [Right Arm] Blood Pressure Position [Right Arm] 02 Sat by Pulse Oximetry 92 L 94 L 94 L Oxygen Delivery Method 12/27/21 17:31 12/27/21 18:30 Temperature Temperature Source Pulse Rate 75 67 Pulse Rate [Radial] Respiratory Rate 21 13 Blood Pressure 135/77 138/86 Blood Pressure [Right Arm] Blood Pressure Mean 93 100 Blood Pressure Mean [Right Arm] Blood Pressure Position [Right Arm] 02 Sat by Pulse Oximetry 96 97 Oxygen Delivery Method - Lab Data Lab results reviewed: Yes: I reviewed the patient's lab results. Lab Results 12/27/21 15:03: WBC 15.2 H, RBC 5.08, Hgb 15.6, Hct 47.1, MCV 92.7, MCH 30.7, MCHC 33.1, RDW 13.0, Plt Count 292, MPV 8.7, Neut % (Auto) 71.4, Lymph % (Auto) 16.7, [place] % (Auto) 8.0, Eos % (Auto) 1.0, Baso % (Auto) 2.9 H, Neut # (Auto) 10.8 H, Lymph # (Auto) 2.5, [place] # (Auto) 1.2 H, Eos # (Auto) 0.2, Baso # (Auto) 0.4 H, Total Counted 100, Neutrophils % (Manual) 69, Lymphocytes % (Manual) 23, Monocytes % (Manual) 8, Platelet Estimate Normal, RBC Morphology Not Reportable, Target Cells 1+, ESR 26 H 12/27/21 15:03: Sodium 136, Potassium 4.0, Chloride 98, Carbon Dioxide 30, Anion Gap 12.0, BUN 17, Creatinine 1.50 H, Estimated Creat Clear 70, Estimated GFR 47 L, Est GFR ( Amer) 56 L, Glucose 122 H, Calcium 9.5, Total Bilirubin 1.6 H, AST 31, ALT 27, Alkaline Phosphatase 84, C-Reactive Protein 106.3 H, Total Protein 7.7, Albumin 4.5, Globulin 3.2, Albumin/Globulin Ratio 1.4 12/27/21 15:27: SARS-CoV-2 (PCR) Not detected, Influenza A Untype (PCR) Not detected, Influenza Type B (PCR) Not detected Result diagrams: 12/27/21 15:03 12/27/21 15:03 Orders (Tests/Meds): ED MEDICATIONS Generic Name Dose Route Start Last Admin Trade Name Freq PRN Reason Stop Dose Admin Piperacillin Sod/Tazobactam 50 mls @ 100 mls/hr 12/27/21 18:30 12/27/21 18:54 Sod 3.375 gm/ Sodium Chloride IV 01/10/22 18:29 100 mls/hr Q6H BECKY Administration Sodium Chloride 1,000 mls @ 50 mls/hr 12/27/21 18:45 Sod Chlor 0.9% 1000ml Bag IV 01/26/22 18:44 .Q20H BECKY Morphine Sulfate 2 mg 12/27/21 18:32 Morphine 2mg/Ml Syringe IV 01/26/22 18:31 Q2HP PRN Severe Pain Ondansetron HCl 4 mg 12/27/21 18:32 Ondansetron 4mg/2ml Vial IV 01/26/22 18:31 Q8HP PRN Nausea Vancomycin HCl 1
--- NOTE | 2021-12-27 15:21 | PC.NURSE ---
notified radiology of xray order, spoke with eva
[2021-12-27 15:22] LABS: Basophils # 0.4 K/mm3 (0-0.2); Basophils % 2.9 % (0.1-2.0); Eosinophils # 0.2 K/mm3 (0.0-0.4); Hematocrit 47.1 % (42.0-52.0); Hemoglobin 15.6 g/dL (14.1-18.0); Lymphocytes # 2.5 K/mm3 (0.7-4.5); Lymphocytes % 16.7 % (10-50); Mean Corpuscular HGB Conc 33.1 g/dL (31.8-35.4); Mean Corpuscular Hemoglobin 30.7 pg (27.0-31.2); Mean Corpuscular Volume 92.7 fl (80-94); Mean Platelet Volume 8.7 fl (7.4-10.4); Monocytes # 1.2 K/mm3 (0.1-1.0); Neutrophils # 10.8 K/mm3 (1.8-7.8); Neutrophils % 71.4 % (37.0-80.0); Platelet Count 292 K/mm3 (142-424); Red Blood Count 5.08 M/mm3 (4.60-6.20); White Blood Count 15.2 K/mm3 (4.8-10.8)
[2021-12-27 15:24] LABS: Chloride 98 mmol/L (98-107); MANUAL DIFFERENTIAL MANUAL DIFFERENTIAL (MANUAL DIFF); Sodium 136 mmol/L (136-145)
[2021-12-27 15:27] LABS: Alanine Aminotransferase 27 U/L (12-78); Albumin Level 4.5 g/dl (3.5-5.0); Albumin/Globulin Ratio 1.4 (1.1-1.8); Alkaline Phosphatase 84 U/L (38-126); Aspartate Amino Transferase 31 U/L (17-59); Bilirubin,Total 1.6 mg/dl (0.2-1.3); Blood Urea Nitrogen 17 mg/dl (9-20); Calcium 9.5 mg/dl (8.4-10.2); Carbon Dioxide 30 mmol/L (22.0-30.0); Creatinine Clearance Estimated 70 mL/min (50-200); Estimated Glomerular Filt Rate 47 ml/min (>60); GFR (African American) 56 ML/MIN (>60); Globulin 3.2 g/dL (1.3-3.2); Glucose 122 mg/dl (74-100); Total Protein,Serum 7.7 g/dl (6.3-8.2)
[2021-12-27 15:30] LABS: Coronavirus 19, PCR Not Detected (NotDetected); Influenza A, PCR Not Detected (NotDetected); Influenza B, PCR Not Detected (NotDetected)
--- NOTE | 2021-12-27 15:30 | PC.NURSE ---
xray did not take due to pain. brought pt back to medicate and then try again
[2021-12-27 15:33] LABS: C-Reactive Protein 106.3 mg/L (0-4)
[2021-12-27 15:49] LABS: Erythrocyte Sedimentation Rate 26 mm/hr (0-20)
--- NOTE | 2021-12-27 15:50 | PC.NURSE ---
procedure consent signed
--- NOTE | 2021-12-27 15:50 | PC.NURSE ---
ER at for procedure
[2021-12-27 16:00] LABS: Lymphocytes % 23 % (10-50); Monocytes % 8 % (2-9); Neutrophils % 69 % (42-76); Total Cells Counted 100
[2021-12-27 16:01] LABS: Platelet Estimate Normal
[2021-12-27 16:02] LABS: Target Cells 1+
--- NOTE | 2021-12-27 16:14 | PC.NURSE ---
notified radiology pt has been medicated for pain, can attempt xrays again at this time.
--- NOTE | 2021-12-27 16:25 | PC.NURSE ---
pt still refusing xrays
--- NOTE | 2021-12-27 17:00 | PC.NURSE ---
UPDATED ON PLAN OF CARE
--- NOTE | 2021-12-27 18:00 | PC.NURSE ---
UPDATED ON PLAN OF CARE PT OFFERED WARM BLANKETS PT DECLINED
--- NOTE | 2021-12-27 18:04 | PC.NURSE ---
has been paged
--- NOTE | 2021-12-27 18:26 | PC.NURSE ---
checked on pt everything good
--- NOTE | 2021-12-27 18:34 | PC.NURSE ---
ct at bedside to try and xray it with the portable
--- NOTE | 2021-12-27 19:31 | PC.NURSE ---
REPORT CALLED TO FLOOR
[2021-12-27 19:36] LABS: Lactic Acid 1.6 mmol/L (0.7-2.1)
--- NOTE | 2021-12-27 20:49 | PC.NURSE ---
PT arrivied to floor via wheel chair at 20:11
[2021-12-28] VITALS (19 sets, daily range): BP systolic 93–151; BP diastolic 45–81; PULSE 66–90; RESP 12–18; TEMP 36.4–37.4; O2SAT 93–96; BMI 32.4; BMI 32.3
--- NOTE | 2021-12-28 04:11 | PC.NURSE ---
Patient admitted to floor this shift. Patient Lt elbow noted to be swollen and painful with limited ROM. Patient has been medicated per mar for pain. Patient has been npo since 0000 for ortho consult in the AM.
--- NOTE | 2021-12-28 07:18 | HMH.PHAVTE ---
[facility] Pharmacy VTE Monitoring - Patient Demographics Admission date: 12/27/21 Report Date: 12/28/21 Time: 07:18 Allergies/Adverse Reactions: Patient Allergies Penicillins [PENICILLINS] Allergy (Mild, Verified 08/29/21 10:10) Height: 1.8 m Weight: 105.233 kg Patient Problems: Current Active Problems Septic arthritis (Acute) - VTE Risk Labs: VTE Related Lab Results Hgb 15.6 g/dL (14.1-18.0) 12/27/21 15:03 Hct 47.1 % (42.0-52.0) 12/27/21 15:03 Plt Count 292 K/mm3 (142-424) 12/27/21 15:03 BUN 17 mg/dl (9-20) 12/27/21 15:03 Creatinine 1.50 mg/dl (0.66-1.25) H 12/27/21 15:03 Estimated Creat Clear 70 mL/min (50-200) 12/27/21 15:03 Was VTE Risk Assessment Performed: Yes VTE Score: 2 VTE Risk Level: Very Low Risk - Prophylaxis VTE Prophylaxis Ordered?: Yes Types of VTE Prophylaxis: TEDS Knee High Location of Applied Device: Bilateral Lower Extremeties
--- NOTE | 2021-12-28 08:33 | HMH.HP ---
*Admission Date: 12/27/21 *Chief complaint: Left elbow pain and swelling *History of present illness: 66-year-old male, history of gout, had been dealing with what he presumed to be flareup in the left elbow over the past week, states symptoms have progressively gotten worse, he had been taking colchicine that he had at home that he was prescribed 4 years ago. He does state that he had had previous episode that was similar which ended up being a septic joint for which she was seen at the [facility], had surgical washout at that time. He was also noted to have low-grade fever today, denies any other symptoms, specifically no nausea, vomiting, numbness or tingling of the extremity. He states pain is fairly severe, much worse with movement or palpation of the area Above note per ER physician. Work-up in the ER revealed elevated inflammatory markers, effusion on x-ray and joint aspiration revealed very cloudy fluid. Patient admitted for IV antibiotics and Ortho consultation for washout of the joint. [facility] History I have reviewed the patient's past medical history: Yes Medical History: Reports:: Coronary Artery Disease, Gastroesophageal Reflux Disease(GERD), Hyperlipidemia, Hypertension Denies:: Cancer, Diabetes Mellitus Type 1, Diabetes Mellitus Type 2, MRSA *Have you ever received a pneumonia vaccine?: Yes *Have you received a flu vaccine this season?: No Laterality Cases: Bilateral: Tonsillectomy Other Surgeries: Yes: No Previous Surgery, Cardiac Catheterization, Other Amputation: No Fractures: No - *Social History Last grade of school completed: Some college Smoking Status: Former smoker Alcohol Intake: never Alcohol Intake Frequency:: holidays/special occasions only Substance Use Type: denies use *Occupational Status:: employed Housing: house Household Members: spouse *Travel in the last 8 weeks: None Family Hx:: No significant family history Review of Systems - Review of Systems Review of systems:: pertinent systems reviewed and negative unless documented below Meds Home Medications Medication Instructions Recorded Confirmed Type Aspirin [Low Dose Aspirin EC] 81 mg PO DAILY 08/09/21 12/27/21 History Losartan/Hydrochlorothiazide 1 tab PO DAILY 08/09/21 12/27/21 History [Losartan-Hctz 50-12.5 mg Tab] omeprazole 20 mg capsule,delayed 20 mg PO DAILY #90 cap 08/10/21 12/27/21 Rx release Atorvastatin Calcium [Lipitor 40mg 40 mg PO HS 12/27/21 12/27/21 History Tab] Allergies Allergy/AdvReac Type Severity Reaction Status Date / Time Penicillins [PENICILLINS] Allergy Mild Verified 08/29/21 10:10 Exam Vital signs and Labs for Last 24 Hours: Temp Pulse Resp BP Pulse Ox 99.3 F 67 17 116/55 L 94 L 12/28/21 07:59 12/28/21 07:59 12/28/21 07:59 12/28/21 07:59 12/28/21 07:59 Laboratory Results - last 24 hr 12/27/21 15:03: WBC 15.2 H, RBC 5.08, Hgb 15.6, Hct 47.1, MCV 92.7, MCH 30.7, MCHC 33.1, RDW 13.0, Plt Count 292, MPV 8.7, Neut % (Auto) 71.4, Lymph % (Auto) 16.7, [place] % (Auto) 8.0, Eos % (Auto) 1.0, Baso % (Auto) 2.9 H, Neut # (Auto) 10.8 H, Lymph # (Auto) 2.5, [place] # (Auto) 1.2 H, Eos # (Auto) 0.2, Baso # (Auto) 0.4 H, Total Counted 100, Neutrophils % (Manual) 69, Lymphocytes % (Manual) 23, Monocytes % (Manual) 8, Platelet Estimate Normal, RBC Morphology Not Reportable, Target Cells 1+, ESR 26 H 12/27/21 15:03: Sodium 136, Potassium 4.0, Chloride 98, Carbon Dioxide 30, Anion Gap 12.0, BUN 17, Creatinine 1.50 H, Estimated Creat Clear 70, Estimated GFR 47 L, Est GFR ( Amer) 56 L, Glucose 122 H, Calcium 9.5, Total Bilirubin 1.6 H, AST 31, ALT 27, Alkaline Phosphatase 84, C-Reactive Protein 106.3 H, Total Protein 7.7, Albumin 4.5, Globulin 3.2, Albumin/Globulin Ratio 1.4 12/27/21 15:03: Lactate 1.6 12/27/21 15:27: SARS-CoV-2 (PCR) Not detected, Influenza A Untype (PCR) Not detected, Influenza Type B (PCR) Not detected I & O for Last 24 hours: Intake & Output 12/25/21 12/26/21 12/27/21 12/28/21
--- NOTE | 2021-12-28 08:59 | MR_ITS ---
FINAL REPORT CLINICAL HISTORY: septic arthritis, evaluate for abscess. REDDNESS AND SWELLING ON POSTERIOR ASPECT OF ELBOW. PATIENT WAS UNABLE TO BEND ARM. PRIOR HX SURGERY ON ELBOW. 20ML PROHANCE GIVEN. FINDINGS: Multiple planar MR imaging of the left elbow was performed with and without contrast. The visualized bony structures are intact without evidence of fracture or bone marrow edema. There is abnormal signal in the distal triceps tendon at the insertion probably due to partial tear and tendinosis. There is overlying subcutaneous soft tissue edema and apparent ulceration. There is no evidence of osteomyelitis. The biceps tendon is intact. The musculature is intact. No abscess is seen. IMPRESSION: Tendinosis and partial insertional tear of the distal triceps tendon without evidence of osteomyelitis. Reviewed, Interpreted and Dictated by Lucian Hanley MD Transcribed by Beto Paulino Authenticated and . [facility] [place]
--- NOTE | 2021-12-28 09:13 | HMH.PHACONS ---
- Pharmacy Consult Date: 12/28/21 Time: 09:13 Referring provider: DR. ZEE Reason for Consult:: VANCOMYCIN DOSING Allergies and ADEs:: Allergies Allergy/AdvReac Type Severity Reaction Status Date / Time Penicillins [PENICILLINS] Allergy Mild Verified 08/29/21 10:10 Home Medications:: Home Medications Medication Instructions Recorded Confirmed Type Aspirin [Low Dose Aspirin EC] 81 mg PO DAILY 08/09/21 12/27/21 History Losartan/Hydrochlorothiazide 1 tab PO DAILY 08/09/21 12/27/21 History [Losartan-Hctz 50-12.5 mg Tab] omeprazole 20 mg capsule,delayed 20 mg PO DAILY #90 cap 08/10/21 12/27/21 Rx release Atorvastatin Calcium [Lipitor 40mg 40 mg PO HS 12/27/21 12/27/21 History Tab] Height: 1.8 m Weight: 105.233 kg Laboratory Results:: Laboratory Results - last 24 hr 12/27/21 15:03: WBC 15.2 H, RBC 5.08, Hgb 15.6, Hct 47.1, MCV 92.7, MCH 30.7, MCHC 33.1, RDW 13.0, Plt Count 292, MPV 8.7, Neut % (Auto) 71.4, Lymph % (Auto) 16.7, [place] % (Auto) 8.0, Eos % (Auto) 1.0, Baso % (Auto) 2.9 H, Neut # (Auto) 10.8 H, Lymph # (Auto) 2.5, [place] # (Auto) 1.2 H, Eos # (Auto) 0.2, Baso # (Auto) 0.4 H, Total Counted 100, Neutrophils % (Manual) 69, Lymphocytes % (Manual) 23, Monocytes % (Manual) 8, Platelet Estimate Normal, RBC Morphology Not Reportable, Target Cells 1+, ESR 26 H 12/27/21 15:03: Sodium 136, Potassium 4.0, Chloride 98, Carbon Dioxide 30, Anion Gap 12.0, BUN 17, Creatinine 1.50 H, Estimated Creat Clear 70, Estimated GFR 47 L, Est GFR ( Amer) 56 L, Glucose 122 H, Calcium 9.5, Total Bilirubin 1.6 H, AST 31, ALT 27, Alkaline Phosphatase 84, C-Reactive Protein 106.3 H, Total Protein 7.7, Albumin 4.5, Globulin 3.2, Albumin/Globulin Ratio 1.4 12/27/21 15:03: Lactate 1.6 12/27/21 15:27: SARS-CoV-2 (PCR) Not detected, Influenza A Untype (PCR) Not detected, Influenza Type B (PCR) Not detected Medical History: Reports:: Coronary Artery Disease, Gastroesophageal Reflux Disease(GERD), Hyperlipidemia, Hypertension Denies:: Cancer, Diabetes Mellitus Type 1, Diabetes Mellitus Type 2, MRSA Assessment and Plan (1) Septic arthritis Status: Acute Qualifiers: Septic arthritis location: elbow Septic arthritis organism: due to unspecified organism Laterality: left Qualified Code(s): M00.9 - Pyogenic arthritis, unspecified Category: Medical Code(s): M00.9 - Pyogenic arthritis, unspecified - Assessment and plan all Dx Assessment and Plan for all problems:: Age: 68 yo Serum creatinine: 1.5 mg/dL Height: 70.9 Inches Weight (kg): 105 Assessment: IBW (kg): 75.07 Dosing wt(kg): 105 Estimated Creatinine clearance (ml/min): 48.7 CRCL method: Cockcroft and Gault using ibw(default). Drug selected: Vancomycin Loading dose (mg): 0 Vd (liters): 78.8 (factor used: 0.75 L/kg) [place] (hr-1): 0.045 Half life (hrs): 15.40 Recommended dose: 1500 mg Interval: 18 hrs Infusion time (hrs): 2.0 Predicted peak (mcg/mL): 32.8 Predicted trough (mcg/mL): 15.97 Total body weight is being used for vancomycin dosing. Recommendations: Give Vancomycin 1500 mg q 18 hrs with an expected Cpeak of 32.8 mcg/ml and an expected Ctrough of 15.97 mcg/ml. ----Vanco only - ignore for aminoglycosides----- CLvanco= 3.55 L/hr AUC 0-24 /PABLO Data: PABLO 0.5 mcg/mL: AUC/PABLO: 1126.8 PABLO 1.0 mcg/mL: AUC/PABLO: 563.4 --------- PABLO 1.5 mcg/mL: AUC/PABLO: 375.6 PABLO 2.0 mcg/mL: AUC/PABLO: 281.7
--- NOTE | 2021-12-28 09:28 | HMH.PHAINT ---
MEDICATION RECONCILIATION COMPLETED ON PATIENT USING EXTERNAL FILL HISTORY FROM PHARMACY, LIST FROM PCP OFFICE, AND PATIENT INTERVIEW. -ORSY FERRARA, KARELYD
--- NOTE | 2021-12-28 15:11 | HMH.ANESCL ---
[facility] Anesthesia Checklist - Structural Data Admitted From: Inpatient Planned Operative Procedure/s: i/d elbow Consent for Planned Operative Procedure(s) Verified: Yes - Airway Assessment C-Spine Mobility Assessed: Yes TMJ Mobility Assessed: Yes Dentition: Good Dentition - Neurological Assessment Level of Consciousness: Awake, Alert, Appropriate - Anesthesia Plan Anesthesia Risk discussed: Yes Anesthesia Plan: Verified ASA Class: II Anesthesia Type: General [facility] History I have reviewed the patient's past medical history: Yes Medical History: Reports:: Coronary Artery Disease, Gastroesophageal Reflux Disease(GERD), Hyperlipidemia, Hypertension Denies:: Cancer, Diabetes Mellitus Type 1, Diabetes Mellitus Type 2, MRSA *Have you ever received a pneumonia vaccine?: Yes *Have you received a flu vaccine this season?: No Anesthesia experience/problems:: none Laterality Cases: Bilateral: Tonsillectomy Other Surgeries: Yes: No Previous Surgery, Cardiac Catheterization, Other Amputation: No Fractures: No - *Social History Last grade of school completed: Some college Smoking Status: Former smoker Alcohol Intake: never Alcohol Intake Frequency:: holidays/special occasions only Substance Use Type: denies use *Occupational Status:: employed Housing: house Household Members: spouse *Travel in the last 8 weeks: None Family Hx:: No significant family history
--- NOTE | 2021-12-28 15:13 | PC.NURSE ---
rounded on patient. they didn't have any concerns at this time. did bring home meds but these were given back to . patient is now an inpatient so home meds would not be needed. educated them on this. encouraged them to ring out with any needs or questions. educated we would provide any meds md felt were needed.
--- NOTE | 2021-12-28 15:25 | HMH.ORTHOCON ---
*Admission Date: 12/27/21 *Reason for consult:: left septic elbow arthritis, concern for evolving septic olecranon bursitis *History of present illness: 66-year-old male with 5-day history of left elbow pain. He has history of gout, history of septic olecranon bursitis for which she underwent surgery in 2007. He was taking NSAIDs for several days empirically treating concern for gout flare, had no significant improvement. He underwent arthrocentesis in the emergency department yesterday, Gram stain demonstrated gram-positive cocci. His cell count has not returned as of yet. He underwent MRI today which demonstrated large joint effusion, cellulitis overlying the olecranon. He is retired, but stays active, does woodworking. Non-smoker, does not drink, no drug use. [facility] History Medical History: Reports:: Coronary Artery Disease, Gastroesophageal Reflux Disease(GERD), Hyperlipidemia, Hypertension Denies:: Cancer, Diabetes Mellitus Type 1, Diabetes Mellitus Type 2, MRSA *Have you ever received a pneumonia vaccine?: Yes *Have you received a flu vaccine this season?: No Anesthesia experience/problems:: none Laterality Cases: Bilateral: Tonsillectomy Other Surgeries: Yes: No Previous Surgery, Cardiac Catheterization, Other Amputation: No Fractures: No - *Social History Last grade of school completed: Some college Smoking Status: Former smoker Alcohol Intake: never Alcohol Intake Frequency:: holidays/special occasions only Substance Use Type: denies use *Occupational Status:: employed Housing: house Household Members: spouse *Travel in the last 8 weeks: None Family Hx:: No significant family history Review of Systems - Constitutional Denies anorexia - Eyes Denies change in vision - ENT Denies abnormal hearing - *Cardiovascular Denies chest pain - *Respiratory Denies shortness of breath - *Gastrointestinal Denies abdominal pain - *Genitourinary Denies difficulty urinating - *Musculoskeletal Reports joint pain, Reports joint swelling, Denies abnormal walking - Integumentary/Breasts Reports change in skin color - *Neurologic Denies abnormal walking, Denies behavioral changes - Psychiatric Denies behavioral changes - Endocrine Denies rapid, pounding, or irregular heartbeat - Hematologic/Lymphatic Denies easy bleeding, Denies easy bruising Meds Home Medications Medication Instructions Recorded Confirmed Type Aspirin [Low Dose Aspirin EC] 81 mg PO DAILY 08/09/21 12/27/21 History Losartan/Hydrochlorothiazide 1 tab PO DAILY 08/09/21 12/27/21 History [Losartan-Hctz 50-12.5 mg Tab] omeprazole 20 mg capsule,delayed 20 mg PO DAILY #90 cap 08/10/21 12/27/21 Rx release Atorvastatin Calcium [Lipitor 40mg 40 mg PO HS 12/27/21 12/27/21 History Tab] Colchicine 0.6 mg PO DAILYP PRN 12/28/21 12/28/21 History Allergies Allergy/AdvReac Type Severity Reaction Status Date / Time Penicillins [PENICILLINS] Allergy Mild Verified 08/29/21 10:10 Exam Vital signs and Labs for Last 24 Hours: Temp Pulse Resp BP Pulse Ox 99.3 F 67 17 116/55 L 94 L 12/28/21 07:59 12/28/21 07:59 12/28/21 07:59 12/28/21 07:59 12/28/21 07:59 Laboratory Results - last 24 hr 12/27/21 15:03: Total Counted 100, Neutrophils % (Manual) 69, Lymphocytes % (Manual) 23, Monocytes % (Manual) 8, Platelet Estimate Normal, RBC Morphology Not Reportable, Target Cells 1+, ESR 26 H 12/27/21 15:03: Sodium 136, Potassium 4.0, Chloride 98, Carbon Dioxide 30, Anion Gap 12.0, BUN 17, Creatinine 1.50 H, Estimated Creat Clear 70, Estimated GFR 47 L, Est GFR ( Amer) 56 L, Glucose 122 H, Calcium 9.5, Total Bilirubin 1.6 H, AST 31, ALT 27, Alkaline Phosphatase 84, C-Reactive Protein 106.3 H, Total Protein 7.7, Albumin 4.5, Globulin 3.2, Albumin/Globulin Ratio 1.4 12/27/21 15:03: Lactate 1.6 12/27/21 15:27: SARS-CoV-2 (PCR) Not detected, Influenza A Untype (PCR) Not detected, Influenza Type B (PCR) Not detected I & O for
--- NOTE | 2021-12-28 16:39 | HMH.ANESI ---
[facility] Anesthesia Record Part I Intake, IV Amount: 1,500 Estimated blood loss (mL): 10 Urine output (mL): 0 Blood Pressure: 139/81 SaO2: 93 Pulse Rate: 90 Respiratory Rate: 12 Temperature: 97.5 F Patient is:: Awake, Stable Stable to PACU at:: 16:30
--- NOTE | 2021-12-28 16:47 | HMH.OPNOTE ---
Date of procedure: 12/28/21 Pre-op Diagnosis:: left elbow septic arthritis, concern for evolving olecranon bursitis Post-op Diagnosis:: gouty arthritis left elbow with concern for superimposed septic arthritis, posterior elbow cellulitis with olecranon bursitis Procedure performed:: Left elbow arthrotomy Left olecranon bursal excision Surgeon:: Coleman Panchal JR, MD MECHANICAL SPECIALIST:: Oscar Layne Anesthesia: GETA Estimated blood loss (mL): 30 Operative findings:: There was abundant scar tissue in the olecranon bursal area with a small pocket of turbid appearing fluid, healthy appearing synovial fluid which I excised. Synovial fluid appeared turbid with gouty tophi. Operative note:: 66-year-old male with history of gouty arthropathy, septic left elbow arthritis, concern for evolving recurrent septic left olecranon bursitis. I had a discussion with him regarding further management. Given the gram-positive cocci noted on arthrocentesis, and given his MRI findings of large effusion and pain with any active or passive range of motion on examination, I am highly suspicious for septic arthritis. He is quite tender over the olecranon bursa. While there is no obvious evidence of olecranon bursitis on MRI, I suspect he may be developing this as well. I had a discussion with him regarding further management including debridement and irrigation as well as expected observation with empiric antibiotics. After discussion of risks, benefits, and alternatives, he wished to proceed with left elbow debridement and irrigation. I discussed with him making a new incision to irrigate the joint versus going through his previous incision. Since he is tender, has significant erythema in the area, I plan to utilize his previous posterior approach, dissect laterally to gain access to the elbow joint via the Nora interval. He is amenable with the plan. Plan for debridement and irrigation left elbow. We discussed the risk and benefits of surgery. Risks included but were not limited to pain, bleeding, infection, damage to adjacent structures, need for further surgery, persistent infection, arthritis, wound healing complications, loss of limb, . Patient expressed verbal consent and written consent was obtained for the above procedure. From his previous direct posterior incision, dissected through skin and subcutaneous tissue. I encountered abundant scar tissue from his previous olecranon bursal surgery, encountered a small pocket of turbid appearing fluid, swab specimen of which I sent for culture. There was some inflamed, overall healthy appearing bursal tissue which I excised using a rongeur and Bovie electrocautery. I dissected laterally and anteriorly along the fascial plane, identified the Nora interval, and with the forearm pronated, incised over the radiocapitellar joint, noted a medrano of turbid appearing fluid with gouty tophi. I sent swab specimens of this fluid as well for culture. I copiously irrigated the anterior joint with Irrisept followed by saline. I then pierced the joint capsule just posterior to the lateral epicondyle to gain access to the olecranon fossa, noted similar appearing fluid. I copiously irrigated with Irrisept and saline once again. I placed vancomycin powder into the subcutaneous tissue, placed a 7 Kyrgyz drain, closed the wound with 2-0 nylon suture, sutured the drain in place. Sterile dressing including Xeroform, 4 x 4, ABD pad, Nate wrap was applied. Counts were correct x2. There were no apparent complications. I was present and scrubbed for the entire case. Tourniquet time (min): 37 Condition: stable Disposition: PACU Specimens:: swab specimens sent for culture, olecranon bursal fluid / synovial fluid Complications:: none apparent
--- NOTE | 2021-12-28 17:13 | PC.NURSE ---
1657-detailed report called to ESTRELLITA Butcher 1701-pt transported to post op via hospital bed w/ned rails up and left in care of ESTRELLITA Butcher with bed locked in lowest position, vss, family at bedside, pt stable
[2021-12-28 18:33] LABS: Uric Acid 6.6 mg/dl (3.5-8.5)
--- NOTE | 2021-12-28 19:24 | PC.NURSE ---
PT IS AOX4, ABLE TO MAKE NEEDS KNOWN TO STAFF, DEBRIDEMENT AND WASHOUT OF LEFT ELBOW TODAY. HAS C/O MINIMAL PAIN AND DID NOT WANT PAIN MEDICATION WHEN ARRIVING BACK TO FLOOR. VSS. DID EAT SOME SUPPER THE FAMILY BROUGHT IN AND TOLERATED WELL. 1 VOID SINCE RETURNING TO FLOOR. CRISTOBAL DRAIN IN PLACE DRAINING SEROSAGUINEOUS.
[2021-12-29] VITALS: BP 110/50; PULSE 55; RESP 18; TEMP 36.4; O2SAT 93
[2021-12-29 04:00] VITALS: BP 117/60; PULSE 60; RESP 16; TEMP 36.5; O2SAT 93
--- NOTE | 2021-12-29 06:32 | PC.NURSE ---
Patient A&O x4. Pain minimum to lt elbow. Surgical dressing to Lt elbow is clean dry and intact. Joshua drain noted to drain 40 ml of bloody drainage. A large clot is noted in the bulb which can not be expelled.
[2021-12-29 07:56] VITALS: BP 124/60; PULSE 56; RESP 18; TEMP 36.1; O2SAT 96
--- NOTE | 2021-12-29 08:48 | HMH.ACPN2 ---
Internal Medicine - PN: Subj *Date: 12/29/21 *Time: 08:48 Interval history: Patient underwent successful washout of the left elbow joint yesterday. Gram stain of fluid negative. Personally discussed case with orthopedic surgeon this morning Exam Vital signs and Labs for Last 24 Hours: Temp Pulse Resp BP Pulse Ox 97 F L 56 L 18 124/60 96 12/29/21 07:56 12/29/21 07:56 12/29/21 07:56 12/29/21 07:56 12/29/21 07:56 Laboratory Results - last 24 hr 12/28/21 17:38: Uric Acid 6.6 I & O for Last 24 hours: Intake & Output 12/26/21 12/27/21 12/28/21 12/29/21 11:59 11:59 11:59 11:59 Intake Total 1260 / 1260 1740 / 1740 Output Total 40 / 40 Balance 1260 / 1260 1700 / 1700 Weight 231 lb 15.985 oz 231 lb 7.766 oz Microbiology Reports for the Last 24 Hours: Microbiology 12/28/21 15:58 Elbow,Left Gram Stain - Final 12/28/21 15:58 Elbow,Left Gram Stain - Final Narrative: Patient feels great, no complaints, lungs clear, heart regular, abdomen soft. Left elbow wrapped, CRISTOBAL drain from the dressing area has serosanguineous drainage. No problems below the dressing with neurovascular issues Assessment and Plan (1) Septic arthritis Status: Acute Qualifiers: Septic arthritis location: elbow Septic arthritis organism: due to unspecified organism Laterality: left Qualified Code(s): M00.9 - Pyogenic arthritis, unspecified Category: Medical Code(s): M00.9 - Pyogenic arthritis, unspecified - Assessment and plan all Dx Assessment and Plan for all problems:: Good surgical result. Watch patient overnight for culture results and hopefully orthopedics will be able to drain tomorrow and we can talk about discharging. Check white count this morning.
[2021-12-29 09:02] LABS: Basophils % 0.1 % (0.1-2.0); Eosinophils # 0.1 K/mm3 (0.0-0.4); Eosinophils % 0.6 % (0.1-12.0); Hematocrit 40.5 % (42.0-52.0); Hemoglobin 13.5 g/dL (14.1-18.0); Lymphocytes # 1.1 K/mm3 (0.7-4.5); Lymphocytes % 6.9 % (10-50); Mean Corpuscular HGB Conc 33.4 g/dL (31.8-35.4); Mean Corpuscular Hemoglobin 31.2 pg (27.0-31.2); Mean Corpuscular Volume 93.4 fl (80-94); Mean Platelet Volume 8.2 fl (7.4-10.4); Monocytes # 0.9 K/mm3 (0.1-1.0); Monocytes % 6.1 % (1.7-9.3); Neutrophils # 13.1 K/mm3 (1.8-7.8); Neutrophils % 86.3 % (37.0-80.0); Platelet Count 220 K/mm3 (142-424); Red Blood Count 4.34 M/mm3 (4.60-6.20); Red Cell Distribution Width 12.8 % (11.5-17.5); White Blood Count 15.2 K/mm3 (4.8-10.8)
[2021-12-29 09:04] LABS: MANUAL DIFFERENTIAL MANUAL DIFFERENTIAL (MANUAL DIFF)
[2021-12-29 09:26] LABS: Anion Gap 7.8 mEq/L (5-15); Blood Urea Nitrogen 23 mg/dl (9-20); Calcium 8.7 mg/dl (8.4-10.2); Carbon Dioxide 28 mmol/L (22.0-30.0); Chloride 105 mmol/L (98-107); Creatinine Clearance Estimated 81 mL/min (50-200); Estimated Glomerular Filt Rate 55 ml/min (>60); GFR (African American) 66 ML/MIN (>60); Glucose 132 mg/dl (74-100); Potassium 3.8 mmoL/L (3.5-5.1); Sodium 137 mmol/L (136-145)
[2021-12-29 10:02] LABS: Lymphocytes % 14 % (10-50); Monocytes % 5 % (2-9); Neutrophils % 81 % (42-76); RBC Morphology Normal; Total Cells Counted 100
[2021-12-29 10:03] LABS: Platelet Estimate Normal
[2021-12-29 11:11] VITALS: BP 104/43; PULSE 63; RESP 18; TEMP 37.1; O2SAT 96
--- NOTE | 2021-12-29 12:54 | HMH.ORTHPN ---
Subjective Date: 12/29/21 Time: 12:54 Principal diagnosis: left elbow gouty arthritis, concern for septic elbow arthritis / bursitis Interval history: His pain is significantly improved. He's resting comfortably with no complaints. No chest pain / SOA. No N/V/D. PN: Obj Ex Vital signs: Temp Pulse Resp BP Pulse Ox 98.7 F 63 18 104/43 L 96 12/29/21 11:11 12/29/21 11:11 12/29/21 11:11 12/29/21 11:11 12/29/21 11:11 - Constitutional no acute distress - Routine HEENT Exam Head: Present: normocephalic Eye: Present: EOMI - Routine Neck Exam Present: supple - Routine Respiratory Exam Absent: respiratory distress - Routine Cardiovascular Exam Present: RRR - Routine Abdominal Exam Present: soft. Absent: distended - Detailed Upper Extremity Exam Elbow: Left normal inspection (Left upper extremity: 5/5 motor function finger flexion, finger extension, finger abduction, FPL, EPL, APB, adductor pollicis, opponens pollicis.), Left wound (Dressing c/d/p, serosanguinous output CRISTOBAL drain. CR < 2s all digits. ), Left full ROM (Elbow range of motion with flexion and extension equal to the contralateral side, no pain with forearm pronation, supination.) Comments: Radial, ulnar pulse. Capillary refill less than 2 seconds. Sensation intact to radial, median, ulnar nerve distributions. Progress Note: A&P (1) Septic arthritis Status: Acute Assessment and Plan for All Diagnoses:: 66-year-old male status post left elbow arthrotomy, debridement, irrigation, olecranon bursectomy December 29, 2021. Plan to leave drain in place. Activity as tolerated left upper extremity. Continue empiric antibiotics, follow cultures. Will pull drain when output < 30 mL per shift. Plan for 2 week followup for wound check. Begin daily dressing changes beginning tomorrow. Will follow.
[2021-12-29 13:09] LABS: LD, Body Fluid 7148 IU/L (.)
[2021-12-29 15:42] VITALS: BP 126/65; PULSE 65; RESP 20; TEMP 37.1; O2SAT 96
[2021-12-29 16:10] LABS: Clarity,Fluid Cloudy (Clear); Color,Fluid Straw (Yellow); Eosinophils,Fluid 0 % (Not Estab.); Lymphocytes,Fluid 2 % (Not Estab.); Macrophages,Fluid 2 % (Not Estab.); Polys,Fluid 96 % (Not Estab.); RBC,Fluid 57000 /uL (Not Estab.)
--- NOTE | 2021-12-29 18:49 | PC.NURSE ---
pt A&OX4. left elbow swollen, dressing CDI, 15 mL serosanguineous drainage per CRISTOBAL. large clot noted in CRISTOBAL bulb. no complaints of pain this shift.
[2021-12-29 20:00] VITALS: BP 116/72; PULSE 59; RESP 17; TEMP 37.3; O2SAT 97
[2021-12-29 21:02] LABS: Vancomycin,Trough 10.5 ug/mL (5.0-10.0)
--- NOTE | 2021-12-29 21:19 | PC.NURSE ---
Spoke with Azar from [facility] regarding pts vanco trough. Per pharmacist go ahead and give scheduled dose. No changes in dose or frequency at this time.
[2021-12-30] VITALS: BP 134/66; PULSE 82; RESP 17; TEMP 36.7; O2SAT 92
[2021-12-30 01:49] LABS: Vancomycin,Peak 27.4 ug/ml (11-39)
[2021-12-30 04:00] VITALS: BP 128/79; PULSE 60; RESP 17; TEMP 36.8; O2SAT 96
[2021-12-30 04:52] VITALS: BMI 32.3
--- NOTE | 2021-12-30 05:09 | PC.NURSE ---
PT ALERT AND ORIENTED X 4. DRESSING TO L ELBOW C/D/I. CRISTOBAL DRAINING SANGUINEOUS DRAINAGE, LARGE CLOT NOTED IN CRISTOBAL BULB. SEE I&O TAB FOR TOTALS. PT HAS HAD NO C/O OF PAIN THIS SHIFT. PT HAS BEEN AFEBRILE. IV INFUSING PER ORDER. CALL LIGHT IN REACH. NO NEEDS VOICED AT THIS TIME.
--- NOTE | 2021-12-30 06:51 | PC.NURSE ---
5 MLS EMPTIED FROM CRISTOBAL DRAIN
[2021-12-30 07:35] LABS: MANUAL DIFFERENTIAL MANUAL DIFFERENTIAL (MANUAL DIFF)
[2021-12-30 07:40] LABS: Basophils % 0.1 % (0.1-2.0); Eosinophils % 0.3 % (0.1-12.0); Hemoglobin 12.3 g/dL (14.1-18.0); Lymphocytes # 2.2 K/mm3 (0.7-4.5); Lymphocytes % 16.1 % (10-50); Mean Corpuscular HGB Conc 33.4 g/dL (31.8-35.4); Mean Corpuscular Hemoglobin 31.1 pg (27.0-31.2); Mean Corpuscular Volume 93.1 fl (80-94); Mean Platelet Volume 8.6 fl (7.4-10.4); Monocytes # 0.9 K/mm3 (0.1-1.0); Monocytes % 6.3 % (1.7-9.3); Neutrophils # 10.6 K/mm3 (1.8-7.8); Neutrophils % 77.2 % (37.0-80.0); Platelet Count 258 K/mm3 (142-424); Red Blood Count 3.97 M/mm3 (4.60-6.20); Red Cell Distribution Width 12.9 % (11.5-17.5); White Blood Count 13.7 K/mm3 (4.8-10.8)
[2021-12-30 07:49] LABS: Anion Gap 10.1 mEq/L (5-15); Blood Urea Nitrogen 18 mg/dl (9-20); Calcium 8.5 mg/dl (8.4-10.2); Carbon Dioxide 27 mmol/L (22.0-30.0); Chloride 109 mmol/L (98-107); Creatinine Clearance Estimated 95 mL/min (50-200); Estimated Glomerular Filt Rate 67 ml/min (>60); GFR (African American) 81 ML/MIN (>60); Glucose 98 mg/dl (74-100); Potassium 4.1 mmoL/L (3.5-5.1); Sodium 142 mmol/L (136-145)
--- NOTE | 2021-12-30 07:59 | HMH.DCSUM ---
General - General Admission date:: 12/27/21 Discharge date: 12/30/21 HPI HPI: 66-year-old male, history of gout, had been dealing with what he presumed to be flareup in the left elbow over the past week, states symptoms have progressively gotten worse, he had been taking colchicine that he had at home that he was prescribed 4 years ago. He does state that he had had previous episode that was similar which ended up being a septic joint for which she was seen at the [facility], had surgical washout at that time. He was also noted to have low-grade fever today, denies any other symptoms, specifically no nausea, vomiting, numbness or tingling of the extremity. He states pain is fairly severe, much worse with movement or palpation of the area Above note per ER physician. Work-up in the ER revealed elevated inflammatory markers, effusion on x-ray and joint aspiration revealed very cloudy fluid. Patient admitted for IV antibiotics and Ortho consultation for washout of the joint. Hospital Course Hospital Course: Patient was admitted. Underwent washout elbow per orthopedic service. Appreciate consultation and admission records refer to the op notes. Procedure went well. Afterwards drain was placed and patient was watched for reduction and drainage. Gram staining of fluid with unremarkable with no organisms and cultures are negative at this time of dictation. Patient felt much better with much less pain, and no fevers. Orthopedics evaluated him today and pulling the CRISTOBAL drain and was fine with him going home with outpatient follow-up. Plan will be to discharge patient with Percocet for pain for the next couple of days for the postoperative period and also on Bactrim to cover for infection while we await the gram stain results. I will see him in the office on her next 5 to 7 days and orthopedics for follow-up. Objective Vital signs: Temp Pulse Resp BP Pulse Ox 98.3 F 60 17 128/79 96 12/30/21 04:00 12/30/21 04:00 12/30/21 04:00 12/30/21 04:00 12/30/21 04:00 no acute distress - *Routine HEENT Exam Head: Present: normocephalic Eye: Present: EOMI, PERRL ENT: Present: mucous membranes moist - *Routine Neck Exam Present: supple - *Routine Respiratory Exam Present: CTA bilaterally - *Routine Cardiovascular Exam Present: RRR - *Routine Abdominal Exam Present: soft, normoactive bowel sounds. Absent: tenderness - *Routine Extremities Exam Absent: cyanosis, clubbing, edema Comments: Left elbow dressing clean and dry. CRISTOBAL drain scar intact. Other exam notes per orthopedic note - *Routine Skin Exam Present: warm. Absent: rash - Detailed Eye Exam Eyelids: Bilateral normal inspection Results Labs on day of discharge: Labs from last 24 hours 12/30/21 12/30/21 12/30/21 06:26 06:26 01:05 WBC 13.7 H RBC 3.97 L Hgb 12.3 L Hct 37.0 L MCV 93.1 MCH 31.1 MCHC 33.4 RDW 12.9 Plt Count 258 MPV 8.6 Neut % (Auto) 77.2 Lymph % (Auto) 16.1 [place] % (Auto) 6.3 Eos % (Auto) 0.3 Baso % (Auto) 0.1 Neut # (Auto) 10.6 H Lymph # (Auto) 2.2 [place] # (Auto) 0.9 Eos # (Auto) 0.0 Baso # (Auto) 0.0 Total Counted Neutrophils % (Manual) Lymphocytes % (Manual) Monocytes % (Manual) Platelet Estimate RBC Morphology Sodium 142 Potassium 4.1 Chloride 109 H Carbon Dioxide 27 Anion Gap 10.1 BUN 18 Creatinine 1.10 Estimated Creat Clear 95 Estimated GFR 67 Est GFR ( Amer) 81 D Glucose 98 D Calcium 8.5 Fluid Clarity Fluid Lining Cell Fluid LDH Synovial Color Synovial RBC Synovial Tot Nuc Cell Synovial Eosinophils% Synovial Polynuclear % Synovial Lymphocytes % Synovial Macrophages % Synovial Crystal ID Synovial Fluid Comment Vancomycin Peak 27.4 Vancomycin Trough 12/29/21 12/29/21 12/29/21 20:35 08:55 08:55 WBC 15.2 H RBC 4.
[2021-12-30 08:00] VITALS: BP 136/80; PULSE 64; RESP 18; TEMP 36.8; O2SAT 97
[2021-12-30 08:11] LABS: Eosinophils % 1 % (0-3); Lymphocytes % 11 % (10-50); Monocytes % 5 % (2-9); Neutrophils % 83 % (42-76); Total Cells Counted 100
[2021-12-30 08:12] LABS: Platelet Estimate Normal; RBC Morphology Normal
--- NOTE | 2021-12-30 08:12 | HMH.ORTHPN ---
Subjective Date: 12/30/21 Time: 08:13 Principal diagnosis: left elbow gouty arthritis, concern for septic elbow arthritis / bursitis PN: Obj Ex Vital signs: Temp Pulse Resp BP Pulse Ox 98.3 F 60 17 128/79 96 12/30/21 04:00 12/30/21 04:00 12/30/21 04:00 12/30/21 04:00 12/30/21 04:00 - Constitutional no acute distress - Routine HEENT Exam Head: Present: normocephalic, atraumatic - Routine Neck Exam Present: supple - Routine Respiratory Exam Absent: respiratory distress - Routine Cardiovascular Exam Present: RRR - Routine Abdominal Exam Present: soft. Absent: distended - Detailed Upper Extremity Exam Elbow: Left wound (Incision well approximated with no erythema. Minimal drain output. Distally neurovascularly intact.), Left full ROM (Range of motion equal to the contralateral side, pain-free.) Progress Note: A&P (1) Septic arthritis Status: Acute Assessment and Plan for All Diagnoses:: 66-year-old male status post left elbow arthrotomy, debridement, irrigation, olecranon bursectomy December 28, 2021. Drain was removed this morning. Plan for discharge home. Empiric Bactrim p.o. on discharge. Dressing was changed, sterile dressing applied, leave dressing in place. Follow-up 2 weeks for wound check.
--- NOTE | 2021-12-31 09:13 | P.PN_ITS ---
[facility] Anesthesia Record Part II Discharge Time: 17:10 Destination: floor PACU nurse assessment reviewed?: Yes Patient Condition:: Good Anesthesia Complications:: None Swallowing reflex intact?: Yes Cyanosis?: No Blood Pressure: 125/60 Pulse Rate: 84 Temperature: 98.4 F Mental Status: Alert & Oriented Pain level:: 0 Nausea and/or vomitting:: None Intake, IV Amount: 1,500
[2021-12-31 09:14] VITALS: BP 125/60; PULSE 84; TEMP 36.9
--- NOTE | 2022-01-01 12:47 | CARE MANAGER ---
Patient called back. Discussed hospital discharge. Patient does have question about how often dressing is supposed to be changed. The note from said to leave dressing in place and follow up for wound check in 2 weeks. However, he is going to discuss this with Kristan at his appointment on . He denies any other questions or concerns. ESTRELLITA Larose
== END 2021-12-30 08:41 | disposition home or self-care (01) | DRG 501 ==
LOC: ER 14:58 → 2ND 19:01
PROVIDERS: Orthopaedic Surgery; Admitting Provider Internal Medicine Adolescent Medicine; Emergency Provider Emergency Medicine; PCP Nurse Practitioner Family; Visit Provider Internal Medicine Adolescent Medicine
PROC: 0MB40ZZ Excision of Left Elbow Bursa and Ligament, Open Approach (ICD-10-PCS; principal; 2021-12-28 15:00)
DX: M00.9 Pyogenic arthritis, unspecified (principal); L03.114 Cellulitis of left upper limb; I25.10 Atherosclerotic heart disease of native coronary artery without angina pectoris; K21.9 Gastro-esophageal reflux disease without esophagitis; E78.5 Hyperlipidemia, unspecified; I10 Essential (primary) hypertension; Z87.891 Personal history of nicotine dependence; M10.9 Gout, unspecified; M71.9 Bursopathy, unspecified
CPT/HCPCS: 20605; 24105; 36415; 73080; 73223; 80048; 80053; 80202; 83605; 83615; 84550; 85007; 85014; 85018; 85025; 85048; 85049; 85651; 86140; 87040; 87070; 87075; 87205; 89051; 99285; A9576; C9803; J2405; J2543; J3370; U0003; U0005

== ENCOUNTER → 2022-01-11 12:08 | Outpatient (CLI) | payer MEDICARE, OTHER, SELFPAY ==
--- NOTE | 2022-01-11 12:13 | XR_ITS ---
FINAL REPORT CLINICAL HISTORY: s/p sx lt elbow, hx of surgery to remove infection, patient has a condition where he can get gout in any joint FINDINGS: AP, oblique, and lateral views of the left elbow were obtained. There is no prior exam for comparison. There is no acute fracture or dislocation. Joint space is preserved. There is no joint effusion. There is mild soft tissue edema, cellulitis is not excluded. IMPRESSION: Mild soft tissue edema, cellulitis not excluded. No acute osseous abnormality. Reviewed, Interpreted and Dictated by Brenda Albright MD Transcribed by Marla Wise Authenticated and [facility]
--- NOTE | 2022-01-11 12:13 | XR_ITS ---
FINAL REPORT CLINICAL HISTORY: pain and swelling, hx of gout in left elbow FINDINGS: AP, oblique, and lateral views of the right elbow were obtained. There is no prior exam for comparison. There is no acute fracture or dislocation. Joint space is preserved. There is a small joint effusion. A calcification adjacent to the lateral epicondyle is likely chronic. IMPRESSION: No acute osseous abnormality of the right elbow. Small joint effusion. Reviewed, Interpreted and Dictated by Brenda Albright MD Transcribed by Marla Wise Authenticated and [facility]
== END ==
PROVIDERS: PCP Internal Medicine Adolescent Medicine; Visit Provider Orthopaedic Surgery
DX: Z48.89 Encounter for other specified surgical aftercare (principal); M25.521 Pain in right elbow
CPT/HCPCS: 73080

== ENCOUNTER 2022-01-11 13:25 | Emergency (ER) | payer MEDICARE, OTHER, SELFPAY ==
[2022-01-11] VITALS (8 sets, daily range): BP systolic 125–158; BP diastolic 65–93; PULSE 67–88; RESP 16–18; TEMP 36.6–37.4; O2SAT 94–98; BMI 33.0
--- NOTE | 2022-01-11 13:53 | PC.NURSE ---
RADIOLOGY CALLED AND ELBOW XRAYS WERE DONE OUTPT
--- NOTE | 2022-01-11 14:12 | HMH.EDGENADL ---
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 Percocet as needed for pain. Indocin as prescribed. Follow-up with Dr. Panchal as arranged. Return the emergency department if worsening symptoms. Additional instructions for CONTROLLED SUBSTANCES: You have been prescribed a medication that is a controlled substance. Controlled substances include pain medications known as opiates and sedative nerve medications known as benzodiazepines. Tramadol, fioricet, and gabapentin are also controlled substances. Some common opiates include: Codeine (such as Tylenol #3) Hydrocodone (Vicodin, Lortab, Lorcet, [place]) Oxycodone (Percocet, Percodan, Oxycodone, Oxy IR) Some common benzodiazepines include: Diazepam (Valium) Lorazepam (Ativan) Alprazolam (Xanax) Clonazepam (Klonopin) Oxazepam (Serax) All of these controlled substances are highly addictive and frequently abused. Misuse can and frequently does lead to addiction as well as overdose and . Medication should be stored in a locked cabinet or other secure storage unit. Do not store the medication in a motor vehicle. Short term supplies, 3 days or less, are prescribed because of the highly addictive nature of the medication. Any of the controlled substance medication NOT taken should be disposed of properly and NOT SAVED. The recommended method of disposing of unused medications is: Place the medicines in a sealable plastic bag. If the medicine is a solid, crush it or add water to dissolve it. Add something undesirable (cat litter, coffee grounds, etc.) Dispose of sealed bag in household trash Do not flush or pour unused medicines down a sink or drain. Controlled substances should not be shared, given away or sold. Because of the addictive nature and frequent abuse, these medications are sometimes stolen. These medications should be kept in a safe place where they cannot be stolen. Do not keep them in your car or purse. Lost or stolen prescriptions for controlled substances WILL NOT BE REFILLED in this emergency department, regardless of whether a police report was filed. Prescriptions: Oxycodone HCl/Acetaminophen [Percocet 5/325mg tablet] 1 tab PO Q6HP PRN #15 tablet PRN Reason: Moderate To Severe Pain Transmission Status: Received by [id number] Indomethacin [Indocin 25mg capsule] 25 mg PO TID #21 cap Transmission Status: Pending to [id number] Referrals: Fer Roman MD [Primary Care Provider] - - Critical Care Critical Care Time: No Attestation: On 01/11/22, the high probability of a clinically significant, sudden or life threatening deterioration of the following system(s) required my full and direct attention, intervention and personal management. The time I documented below is in addition to time spent performing reported procedures but includes the following listed in this critical care notation. Medical Decision Making - Marc Inquiry Pt receiving controlled substance: Yes Marc was queried for this patient: Yes Risks and benefits of using a controlled substance: were discussed with pt by me Vital Signs: 01/11/22 13:27 01/11/22 15:00 01/11/22 15:59 Temperature 99.3 F Temperature Source Oral Pulse Rate 68 69 Pulse Rate [Radial] 72 Respiratory Rate 16 18 Blood Pressure 150/89 H 150/89 H Blood Pressure [Right Arm] 136/73 Blood Pressure Mean 106 Blood Pressure Mean [Right Arm] 94 Blood Pressure Position [Right Arm] Sitting 02 Sat by Pulse Oximetry 95 96 95 Oxygen Delivery Method Room Air Room Air 01/11/22 16:00 01/11/22 16:30 01/11/22 17:00 Temperature Temperature Source Pulse Rate 74 74 69 Pulse Rate [Radial] Respiratory Rate 18 18 18 Blood Pressure 158/84 H 131/76 144/86 H Blood
[2022-01-11 14:18] LABS: Coronavirus 19, PCR Not Detected (NotDetected); Influenza A, PCR Not Detected (NotDetected); Influenza B, PCR Not Detected (NotDetected)
[2022-01-11 14:30] LABS: Basophils # 0.1 K/mm3 (0-0.2); Basophils % 0.4 % (0.1-2.0); Eosinophils # 0.1 K/mm3 (0.0-0.4); Eosinophils % 0.6 % (0.1-12.0); Hematocrit 43.2 % (42.0-52.0); Hemoglobin 15.1 g/dL (14.1-18.0); Lymphocytes # 2.3 K/mm3 (0.7-4.5); Mean Corpuscular HGB Conc 34.9 g/dL (31.8-35.4); Mean Corpuscular Hemoglobin 31.1 pg (27.0-31.2); Mean Corpuscular Volume 89.1 fl (80-94); Mean Platelet Volume 7.6 fl (7.4-10.4); Monocytes % 6.9 % (1.7-9.3); Neutrophils # 11.1 K/mm3 (1.8-7.8); Neutrophils % 76.2 % (37.0-80.0); Platelet Count 299 K/mm3 (142-424); Red Blood Count 4.85 M/mm3 (4.60-6.20); Red Cell Distribution Width 12.6 % (11.5-17.5); White Blood Count 14.6 K/mm3 (4.8-10.8)
[2022-01-11 14:32] LABS: Lactic Acid 1.3 mmol/L (0.7-2.1)
[2022-01-11 14:34] LABS: Alanine Aminotransferase 35 U/L (12-78); Albumin Level 4.1 g/dl (3.5-5.0); Albumin/Globulin Ratio 1.2 (1.1-1.8); Alkaline Phosphatase 117 U/L (38-126); Anion Gap 10.4 mEq/L (5-15); Aspartate Amino Transferase 36 U/L (17-59); Bilirubin,Total 1.3 mg/dl (0.2-1.3); Blood Urea Nitrogen 21 mg/dl (9-20); Calcium 9.4 mg/dl (8.4-10.2); Carbon Dioxide 27 mmol/L (22.0-30.0); Chloride 103 mmol/L (98-107); Creatinine Clearance Estimated 98 mL/min (50-200); Estimated Glomerular Filt Rate 67 ml/min (>60); GFR (African American) 81 ML/MIN (>60); Globulin 3.4 g/dL (1.3-3.2); Glucose 107 mg/dl (74-100); Potassium 4.4 mmoL/L (3.5-5.1); Sodium 136 mmol/L (136-145); Total Protein,Serum 7.5 g/dl (6.3-8.2)
[2022-01-11 14:37] LABS: C-Reactive Protein 67.9 mg/L (0-4)
--- NOTE | 2022-01-11 14:42 | PC.NURSE ---
JOSHUA ANDERSON speaking with Dr. Panchal
--- NOTE | 2022-01-11 14:50 | PC.NURSE ---
DR KELLOGG SPOKE WITH DR COLLAZO HE IS REQUESTING A MRI OF THE RIGHT ELBOW , [facility] THEY ARE GONNA LOOK OVER CHART AND CALL ME BACK
[2022-01-11 14:52] LABS: Procalcitonin 0.079 ng/mL (0.0-2.0)
--- NOTE | 2022-01-11 14:58 | PC.NURSE ---
CARE [facility]NAGEMENT CALLED BACK AND SAID TO GO AHEAD WITH MRI. RICHIE IN MRI CALLED AND IS AWARE OF SCAN
[2022-01-11 15:32] LABS: Erythrocyte Sedimentation Rate 37 mm/hr (0-20)
--- NOTE | 2022-01-11 15:34 | PC.NURSE ---
RICHIE CALLED FROM MRI PT IS REFUSING HIS MRI SAYS HE IN IN TO MUCH PAIN , WE OFFERED MORE DILAUDID FOR PAIN HE SAYS HE STILL ISNT GONNA HAVE IT DONE . WE ARE TRYING TO CONTACT DR COLLAZO NOW
--- NOTE | 2022-01-11 15:36 | PC.NURSE ---
PT BACK FROM MRI
--- NOTE | 2022-01-11 15:49 | PC.NURSE ---
dr johnson office called and stated that the pt that refusing to do the mri, for his elbow, a ct would be sufficient. nurse was advised
--- NOTE | 2022-01-11 15:52 | CT_ITS ---
PROCEDURE INFORMATION: Exam: CT Right Upper Extremity Without Contrast, Elbow Exam date and time: 01/11/2022 4:04 PM Age: 66 years old Clinical indication: Pain; Elbow; Right TECHNIQUE: Imaging protocol: Computed tomography of the Right upper extremity without contrast. Exam focused on the elbow. Radiation optimization: All CT scans at this facility use at least one of these dose optimization techniques: automated exposure control; mA and/or kV adjustment per patient size (includes targeted exams where dose is matched to clinical indication); or iterative reconstruction. COMPARISON: CR XR ELBOW RT MIN 3V 01/11/2022 12:34 PM FINDINGS: Bones/joints: There is no evidence of acute fracture.There is no evidence of malalignment or dislocation. Anterior and posterior joint effusion. Well-corticated unhealed avulsion fracture off the lateral condyle series 3, image 41. Soft tissues: Soft tissue swelling of the elbow IMPRESSION: 1. There is no evidence of acute fracture.There is no evidence of malalignment or dislocation. 2. Anterior and posterior joint effusion. 3. Well-corticated unhealed avulsion fracture off the lateral condyle series 3, image 41.
--- NOTE | 2022-01-11 16:00 | PC.NURSE ---
pt updated on POC, per Dr. Panchal pt should have a CT r/t pt unable to tolerate MRI. Pt at BS. Pt verbalized understanding of POC. Pt reports not having pain at this time. Call light within reach, will continue to monitor
--- NOTE | 2022-01-11 16:05 | PC.NURSE ---
pt to CT via wheelchair at this time.
--- NOTE | 2022-01-11 16:06 | PC.NURSE ---
pt gone to ct
--- NOTE | 2022-01-11 17:49 | PC.NURSE ---
dr. lazcano here to see pt
--- NOTE | 2022-01-11 18:05 | PC.NURSE ---
DR COLLAZO ASPIRATED FLUID FROM R ELBOW SPECIMEN AND ORDERS SENT TO LAB PER DR COLLAZO
[2022-01-11 18:39] LABS: TNC,Body Fluid 891 cells/uL (< 1000); Volume,Body Fld. 4 mL
[2022-01-11 18:40] LABS: Appearance,Body Fld. Cloudy; RBC,Body Fluid 79 cells/uL (< 10 X 10^3)
[2022-01-11 19:32] LABS: Mononuclear WBCs,Body Fluid 7 %; Polynuclear WBC,Body Fluid 93 %
--- NOTE | 2022-01-14 21:31 | HMH.ORTHPN ---
Subjective Date: 01/11/22 Time: 16:00 Interval history: Given diaphoresis and right elbow pain, new onset, he was sent to the emergency department from clinic today. He underwent CT scan which demonstrated large joint effusion. PN: Obj Ex Vital signs: Temp Pulse Resp BP Pulse Ox 98 F 88 16 125/65 96 01/11/22 19:10 01/11/22 19:10 01/11/22 19:10 01/11/22 19:10 01/11/22 17:46 - Constitutional mild distress - Routine HEENT Exam Head: Present: normocephalic - Routine Respiratory Exam Absent: accessory muscle use, respiratory distress - Routine Cardiovascular Exam Present: RRR - Routine Abdominal Exam Present: soft. Absent: distended - Detailed Upper Extremity Exam Elbow: Right decreased ROM (Right elbow with approximately 15 degree arc of motion, significantly painful, pain with pronation and supination.) Progress Note: A&P Assessment and Plan for All Diagnoses:: 66-year-old male with history of gout, status post left elbow debridement irrigation, with similar symptoms on the right elbow, pain, elbow effusion noted on CT. I aspirated the right elbow via posterior lateral approach yielding 5 cc of yellow appearing fluid with tophaceous white particulate consistent with gouty arthritis. Given his intraoperative cultures were negative, that he had monosodium urate crystals from his left elbow aspirate before, and the appearance of his fluid was clinically consistent with gout, I injected the right elbow with 1 mL of 1% lidocaine without epinephrine and 1 mL of 40 mg/mL methylprednisolone. Okay for discharge home. Follow-up in clinic next week. We will follow the results of the aspirate over the weekend and early next week.
--- NOTE | 2022-01-14 21:43 | HMH.ORTHPN ---
Subjective Date: 01/14/22 Time: 21:43 Interval history: Joint aspirate < 1000 NCC. Rare GPC on gram stain. NCC not consistent with septic arthritis. Patient contacted today, says right elbow feels much better. Advised to call if symptoms worsen, otherwise follow up as scheduled Friday. PN: Obj Ex Vital signs: Temp Pulse Resp BP Pulse Ox 98 F 88 16 125/65 96 01/11/22 19:10 01/11/22 19:10 01/11/22 19:10 01/11/22 19:10 01/11/22 17:46
== END 2022-01-11 19:11 | disposition home or self-care (01) ==
PROVIDERS: Orthopaedic Surgery; Emergency Provider Emergency Medicine; PCP Internal Medicine Adolescent Medicine
DX: M19.021 Primary osteoarthritis, right elbow (principal); Z20.822 Contact with and (suspected) exposure to COVID-19; I10 Essential (primary) hypertension; I25.110 Atherosclerotic heart disease of native coronary artery with unstable angina pectoris; K21.9 Gastro-esophageal reflux disease without esophagitis; E78.5 Hyperlipidemia, unspecified; G47.33 Obstructive sleep apnea (adult) (pediatric); M10.9 Gout, unspecified; Z79.899 Other long term (current) drug therapy; Z88.0 Allergy status to penicillin; Z87.891 Personal history of nicotine dependence
CPT/HCPCS: 73080; 73200; 80053; 83605; 84145; 85025; 85651; 86140; 87040; 87070; 87077; 87186; 87205; 89051; 96374; 96375; 96376; 99285; C9803; J2405; U0003; U0005

== ENCOUNTER 2022-01-21 08:56 | Emergency (ER) | payer MEDICARE, OTHER, SELFPAY ==
[2022-01-21] VITALS (8 sets, daily range): BP systolic 128–146; BP diastolic 82–95; PULSE 61–81; RESP 18; TEMP 37.2; O2SAT 95–97; BMI 31.8
--- NOTE | 2022-01-21 09:15 | PC.NURSE ---
pt given specimen cup for collection of urine.
--- NOTE | 2022-01-21 09:17 | HMH.EDABDPAI ---
ED Disposition Clinical Impression: Diverticulitis Disposition: Home, Self-Care Condition on Discharge: Good Instructions: DI for Diverticulitis Prescriptions: Ciprofloxacin HCl [Cipro 500mg Tab] 500 mg PO BID #14 tab Transmission Status: Pending to [facility]pharm[id number] metroNIDAZOLE [metroNIDAZOLE 500mg Tablet] 500 mg PO Q8 #21 tab Transmission Status: [id number] Referrals: Fer Roman MD [Primary Care Provider] - - Critical Care Critical Care Time: No Attestation: On 01/21/22, the high probability of a clinically significant, sudden or life threatening deterioration of the following system(s) required my full and direct attention, intervention and personal management. The time I documented below is in addition to time spent performing reported procedures but includes the following listed in this critical care notation. Medical Decision Making - Medical Records Medical records reviewed: Yes: I reviewed the patient's medical records. - Marc Inquiry Pt receiving controlled substance: No Vital Signs: 01/21/22 08:57 01/21/22 09:15 01/21/22 09:29 Temperature 99.0 F Temperature Source Oral Pulse Rate 69 65 Pulse Rate [Left Radial] 81 Respiratory Rate 18 Blood Pressure 146/83 H Blood Pressure [Right Arm] 143/83 H Blood Pressure Mean Blood Pressure Mean [Right Arm] 103 Blood Pressure Source [Right Arm] Automatic Cuff Blood Pressure Position [Right Arm] Sitting 02 Sat by Pulse Oximetry 95 96 95 Oxygen Delivery Method Room Air 01/21/22 10:15 01/21/22 10:30 01/21/22 11:03 Temperature Temperature Source Pulse Rate 64 64 67 Pulse Rate [Left Radial] Respiratory Rate 18 Blood Pressure 139/83 145/95 H 128/85 Blood Pressure [Right Arm] Blood Pressure Mean 120 99 Blood Pressure Mean [Right Arm] Blood Pressure Source [Right Arm] Blood Pressure Position [Right Arm] 02 Sat by Pulse Oximetry 97 96 96 Oxygen Delivery Method 01/21/22 11:30 Temperature Temperature Source Pulse Rate 61 Pulse Rate [Left Radial] Respiratory Rate Blood Pressure 131/82 Blood Pressure [Right Arm] Blood Pressure Mean 100 Blood Pressure Mean [Right Arm] Blood Pressure Source [Right Arm] Blood Pressure Position [Right Arm] 02 Sat by Pulse Oximetry 95 Oxygen Delivery Method - Lab Data Lab Results 01/21/22 09:05: WBC 15.9 H, RBC 5.13, Hgb 15.8, Hct 49.9, MCV 97.3 H, MCH 30.7, MCHC 31.6 L, RDW 13.4, Plt Count 363, MPV 7.5, Neut % (Auto) 70.3, Lymph % (Auto) 20.5, Edmunds % (Auto) 7.0, Eos % (Auto) 1.4, Baso % (Auto) 0.8, Neut # (Auto) 11.2 H, Lymph # (Auto) 3.3, Edmunds # (Auto) 1.1 H, Eos # (Auto) 0.2, Baso # (Auto) 0.1, Total Counted 100, Neutrophils % (Manual) 69, Lymphocytes % (Manual) 28, Monocytes % (Manual) 3, Platelet Estimate Normal, Anisocytosis 1+ 01/21/22 09:05: Sodium 139, Potassium 4.2, Chloride 103, Carbon Dioxide 30, Anion Gap 10.2, BUN 19, Creatinine 1.10, Estimated Creat Clear 94, Estimated GFR 67, Est GFR ( Amer) 81, Glucose 115 H, Calcium 9.9, Total Bilirubin 1.1, AST 37, ALT 35, Alkaline Phosphatase 119, Total Protein 7.8, Albumin 4.4, Globulin 3.4 H, Albumin/Globulin Ratio 1.3, Lipase 58 01/21/22 09:27: Urine Color Yellow, Urine Appearance Clear, Urine pH 7.0, Ur Specific [place] 1.010, Urine Protein Negative, Urine Glucose (UA) Negative, Urine Ketones Negative, Urine Blood Negative, Urine Nitrate Negative, Urine Bilirubin Negative, Urine Urobilinogen 0.2, Ur Leukocyte Esterase Negative, Urine RBC None, Urine WBC None, Ur Squamous Epith Cells 3-5, Urine Bacteria Trace Result diagrams: 01/21/22 09:05 01/21/22 09:05 Orders (Tests/Meds): ED MEDICATIONS Discontinued Medications Generic Name Dose Route Start Last Admin Trade Name Tonio PRN Reason Stop Dose Admin Iopamidol 75 ml 01/21/22 10:09 01/21/22 10:18 Iopamidol-370 (76%);100ml Bottle IV 01/21/22 10:10 75 ml ONCE ONE Administration Sodium Chlo
[2022-01-21 09:18] LABS: Basophils # 0.1 K/mm3 (0-0.2); Basophils % 0.8 % (0.1-2.0); Chloride 103 mmol/L (98-107); Eosinophils # 0.2 K/mm3 (0.0-0.4); Eosinophils % 1.4 % (0.1-12.0); Hematocrit 49.9 % (42.0-52.0); Hemoglobin 15.8 g/dL (14.1-18.0); Lymphocytes # 3.3 K/mm3 (0.7-4.5); Lymphocytes % 20.5 % (10-50); Mean Corpuscular HGB Conc 31.6 g/dL (31.8-35.4); Mean Corpuscular Hemoglobin 30.7 pg (27.0-31.2); Mean Corpuscular Volume 97.3 fl (80-94); Mean Platelet Volume 7.5 fl (7.4-10.4); Monocytes # 1.1 K/mm3 (0.1-1.0); Neutrophils # 11.2 K/mm3 (1.8-7.8); Neutrophils % 70.3 % (37.0-80.0); Platelet Count 363 K/mm3 (142-424); Red Blood Count 5.13 M/mm3 (4.60-6.20); Red Cell Distribution Width 13.4 % (11.5-17.5); White Blood Count 15.9 K/mm3 (4.8-10.8)
[2022-01-21 09:19] LABS: Potassium 4.2 mmoL/L (3.5-5.1); Sodium 139 mmol/L (136-145)
[2022-01-21 09:21] LABS: Alanine Aminotransferase 35 U/L (12-78); Alkaline Phosphatase 119 U/L (38-126); Anion Gap 10.2 mEq/L (5-15); Aspartate Amino Transferase 37 U/L (17-59); Bilirubin,Total 1.1 mg/dl (0.2-1.3); Blood Urea Nitrogen 19 mg/dl (9-20); Carbon Dioxide 30 mmol/L (22.0-30.0); Creatinine Clearance Estimated 94 mL/min (50-200); Estimated Glomerular Filt Rate 67 ml/min (>60); GFR (African American) 81 ML/MIN (>60); Lipase 58 U/L (23-300); MANUAL DIFFERENTIAL MANUAL DIFFERENTIAL (MANUAL DIFF)
[2022-01-21 09:22] LABS: Albumin Level 4.4 g/dl (3.5-5.0); Albumin/Globulin Ratio 1.3 (1.1-1.8); Calcium 9.9 mg/dl (8.4-10.2); Globulin 3.4 g/dL (1.3-3.2); Glucose 115 mg/dl (74-100); Total Protein,Serum 7.8 g/dl (6.3-8.2)
[2022-01-21 09:29] LABS: Microscopic, Urine URINE MICROSCOPIC (MICROSCOPIC)
[2022-01-21 09:33] LABS: Appearance,Urine CLEAR (Clear); Bilirubin,Urine Negative (Negative); Blood, Urine Negative (Negative); Color,Urine YELLOW (Yellow); Glucose,Urine (UA) Negative (Negative); Ketones,Urine Negative (Negative); Leukocyte Esterase,Urine Negative (Negative); Nitrate,Urine Negative (Negative); Protein,Urine Negative (Negative); Urobilinogen,Urine 0.2 EU/dl (0.2)
[2022-01-21 09:46] LABS: Bacteria,Urine Trace /lpf
[2022-01-21 09:46] LABS: Lymphocytes % 28 % (10-50); Monocytes % 3 % (2-9); Neutrophils % 69 % (42-76); Total Cells Counted 100
[2022-01-21 09:47] LABS: Anisocytosis 1+; Platelet Estimate Normal
--- NOTE | 2022-01-21 09:49 | CT_ITS ---
FINAL REPORT CLINICAL HISTORY: RLQ pain FINDINGS: Technique: The patient was injected with intravenous contrast. Axial images through the abdomen and pelvis were performed. This study was performed with techniques to keep radiation doses as low as reasonably achievable (ALARA). Individualized dose reduction techniques using automated exposure control or adjustment of mA and/or kV according to the patient's size were employed. Abdomen: The lung bases are clear. The liver is normal in size and attenuation. The gallbladder is present. The spleen is unremarkable. The adrenals are normal. The pancreas is unremarkable. The kidneys enhance appropriately. The aorta is normal in caliber. There is no free fluid or adenopathy. Pelvis: The appendix is not identified. There are multiple diverticula within the colon. There is wall thickening of the sigmoid colon with adjacent fat stranding. It is uncertain if this represents acute diverticulitis or localized colitis. There is no evidence of bowel obstruction. There is no fluid collection to suggest an abscess. There is no evidence of pneumoperitoneum. The urinary bladder is unremarkable. There is a right inguinal hernia containing fat. IMPRESSION: Wall thickening of the sigmoid colon with adjacent fat stranding, uncertain if this represents acute diverticulitis or localized colitis. Reviewed, Interpreted and Dictated by Eusebio Hernandez III, MD Transcribed by Marla Wise Authenticated and [facility]
--- NOTE | 2022-01-21 09:59 | PC.NURSE ---
pt gone to radiology
--- NOTE | 2022-01-21 10:07 | PC.NURSE ---
pt return from radiology.
--- NOTE | 2022-01-21 10:15 | PC.NURSE ---
radiology at bs with pt and family
--- NOTE | 2022-01-21 10:20 | PC.NURSE ---
pt hooked back up to monitor, no complaints at this time
--- NOTE | 2022-01-21 10:56 | PC.NURSE ---
pt up to restroom
--- NOTE | 2022-01-21 11:05 | PC.NURSE ---
pt given pillow and warm blanket at this time, pt updated we area waiting on Ct scan to result. Pt at Bs. Pt states no other needs at this time. Will continue to monitor.
--- NOTE | 2022-01-21 11:18 | PC.NURSE ---
updated family and pt, waiting on radiology scan. remote given for tv
--- NOTE | 2022-01-21 11:28 | PC.NURSE ---
updated pt and family that scan was back and MD will be reviewing it
== END 2022-01-21 12:11 | disposition home or self-care (01) ==
PROVIDERS: Emergency Provider Emergency Medicine; PCP Internal Medicine Adolescent Medicine
DX: K59.00 Constipation, unspecified (principal); R19.7 Diarrhea, unspecified; R50.9 Fever, unspecified; I10 Essential (primary) hypertension; I25.110 Atherosclerotic heart disease of native coronary artery with unstable angina pectoris; K21.9 Gastro-esophageal reflux disease without esophagitis; E78.5 Hyperlipidemia, unspecified; G47.33 Obstructive sleep apnea (adult) (pediatric); Z88.0 Allergy status to penicillin; Z87.891 Personal history of nicotine dependence
CPT/HCPCS: 74177; 80053; 81001; 83690; 85007; 85025; 99285; Q9967

== ENCOUNTER → 2022-01-30 10:53 | Outpatient (CLI) | payer MEDICARE, OTHER, SELFPAY ==
--- NOTE | 2022-01-30 10:57 | CA_ITS ---
APPROVED REPORT EXAM: Comprehensive 2D, Doppler, and color-flow Echocardiogram Pot[employer] Fryer: ALVARO Kim, RVS Ht: 5 ft 11 in Wt: 247lbs BSA: 2.31 BP: 155/88 mmHg Indications: HTN, recurrent fever, CAD, GERD, HLD 2D Dimensions Aortic Root 2.98 cm LA Volume 46.40 mL Left Atrium 3.78 cm LA Volume Index 20.10 mL/m2 (M/F) 16-34 LVOT 2.07 cm (M/F) 1.5-2.5 M-Mode Dimensions RVDd 3.32 cm (0.9-2.6) LA Diam 4.15 cm (1.9-4.0) LVDd 5.07 cm (3.5-5.7) Ao Diam 3.16 cm (2.0-3.7) LVDs 3.35 cm (3.5-5.7) IVSd 1.21 cm (0.6-1.1) PWd 1.11 cm (0.6-1.1) EF (Teich) 62.50% EPSs 0.34 cm FS 33.90% EDV (Teich) 122.10 mL TAPSE 2.74 (<1.7) ESV (Teich) 45.80 mL LV Diastology E Decel Time 237.00 (160-240 msec) E/A Ratio 0.86 MED E' 7.30 (< 7 cm/sec) MED A' 11.20 cm/s E'/MED E' Ratio 8.36 (>14) LAT E' 7.00 (<10 cm/sec) LAT A' 9.80 cm/s E/LAT E' Ratio 8.71 (>14) Aortic Valve LVOT Max 98.00 (70-110 cm/s) LVOT VTI 19.17 cm AoV Peak Adan. 149.00 (50-130 cm/s) AO Peak GR. 8.90 mmHg AO Mean GR. 4.50 (<5 mmHg) AO VTI 27.39 (18-25 cm) RUMA (VTI) 2.36 (2.5-4.5 cm2) Mitral Valve MV A Velocity 71.00 (40-130 cm/s) E/A Ratio 0.86 MV Decel. Time 237.00 (160-240 ms) MV PHT 70.00 ms Pulmonary Valve PV Peak Velocity 97.00 (50-150 cm/s) Tricuspid Valve TR P. Velocity 227.00 cm/s RAP Estimate 10.00 mmHg RVSP 30.50 mmHg Left Ventricle Left atrium is mildly enlarged, left ventricle normal size, mild concentric left ventricular hypertrophy, estimated ejection fraction 55% with no regional wall motion abnormality, grade 1 diastolic dysfunction seen without tissue Doppler evidence of raise left atrial pressure. Right Ventricle Right atrium and right ventricle are normal size and contractility. Aortic Valve Aortic valve is minimally thickened and fibrosed there is no aortic stenosis or aortic insufficiency. Mitral Valve Mitral valve grossly normal, there is trace mitral regurgitation. Tricuspid Valve Tricuspid grossly normal, there is trace tricuspid regurgitation, tricuspid regurgitation jet velocity is inadequate for calculation of the right ventricular systolic pressure. Pulmonic Valve Pulmonic valve is poorly visualized. Great Vessels Aortic root is normal size. Inferior vena cava is normal size with normal inspiratory collapse. Pericardium No significant pericardial effusion noted. Conclusion 1. Mildly enlarged left atrium, normal left ventricular size mild concentric left ventricular hypertrophy, estimated ejection fraction 55% with no regional wall motion abnormality, grade 1 diastolic dysfunction seen without tissue Doppler evidence of raise left atrial pressure. 2. Trace mitral and tricuspid regurgitation. 3. No significant pericardial effusion. 4. Inferior vena cava is normal size with normal inspiratory collapse. Electronically signed by : Ricardo Johnston MD 01/31/2022 06:21:33
== END ==
PROVIDERS: PCP Internal Medicine Adolescent Medicine; Visit Provider Nurse Practitioner Family
DX: A68.9 Relapsing fever, unspecified (principal); I10 Essential (primary) hypertension; M1A.00X0 Idiopathic chronic gout, unspecified site, without tophus (tophi); I25.10 Atherosclerotic heart disease of native coronary artery without angina pectoris
CPT/HCPCS: 93306

== ENCOUNTER → 2022-02-04 13:40 | Outpatient (CLI) | payer MEDICARE, OTHER, SELFPAY ==
[2022-02-04 14:31] LABS: Basophils # 0.1 K/mm3 (0-0.2); Basophils % 0.9 % (0.1-2.0); Eosinophils # 0.2 K/mm3 (0.0-0.4); Eosinophils % 1.2 % (0.1-12.0); Hematocrit 48.7 % (42.0-52.0); Hemoglobin 15.3 g/dL (14.1-18.0); Lymphocytes # 2.7 K/mm3 (0.7-4.5); Lymphocytes % 20.8 % (10-50); Mean Corpuscular HGB Conc 31.4 g/dL (31.8-35.4); Mean Corpuscular Hemoglobin 30.7 pg (27.0-31.2); Mean Corpuscular Volume 97.8 fl (80-94); Mean Platelet Volume 7.5 fl (7.4-10.4); Monocytes # 0.8 K/mm3 (0.1-1.0); Neutrophils # 9.1 K/mm3 (1.8-7.8); Neutrophils % 71.2 % (37.0-80.0); Platelet Count 306 K/mm3 (142-424); Red Blood Count 4.98 M/mm3 (4.60-6.20); Red Cell Distribution Width 13.4 % (11.5-17.5); White Blood Count 12.8 K/mm3 (4.8-10.8)
[2022-02-04 15:16] LABS: Erythrocyte Sedimentation Rate 21 mm/hr (0-20)
[2022-02-04 16:18] LABS: Alanine Aminotransferase 24 U/L (12-78); Albumin Level 4.1 g/dl (3.5-5.0); Albumin/Globulin Ratio 1.6 (1.1-1.8); Alkaline Phosphatase 89 U/L (38-126); Anion Gap 13.3 mEq/L (5-15); Aspartate Amino Transferase 28 U/L (17-59); Bilirubin,Total 0.6 mg/dl (0.2-1.3); Blood Urea Nitrogen 16 mg/dl (9-20); Calcium 9.2 mg/dl (8.4-10.2); Carbon Dioxide 28 mmol/L (22.0-30.0); Chloride 102 mmol/L (98-107); Estimated Glomerular Filt Rate 60 ml/min (>60); GFR (African American) 73 ML/MIN (>60); Globulin 2.6 g/dL (1.3-3.2); Glucose 77 mg/dl (74-100); Potassium 4.3 mmoL/L (3.5-5.1); Sodium 139 mmol/L (136-145); Total Protein,Serum 6.7 g/dl (6.3-8.2); Uric Acid 10.9 mg/dl (3.5-8.5)
[2022-02-04 16:23] LABS: C-Reactive Protein 41.2 mg/L (0-4)
== END ==
PROVIDERS: PCP Internal Medicine Adolescent Medicine; Visit Provider Internal Medicine Adolescent Medicine
DX: A68.9 Relapsing fever, unspecified (principal)
CPT/HCPCS: 36415; 80053; 84550; 85025; 85651; 86140; 87040

== ENCOUNTER → 2022-02-12 08:38 | Outpatient (CLI) | payer MEDICARE, OTHER, SELFPAY ==
--- NOTE | 2022-02-12 08:42 | CT_ITS ---
FINAL REPORT CLINICAL HISTORY: recurrent fever. abd pain COMPARISON: January 21, 2022 FINDINGS: CT OF THE ABDOMEN AND PELVIS WITH CONTRAST Axial CT images of the abdomen and pelvis were obtained after the administration of intravenous and oral contrast. Coronal reformatted images were also obtained and reviewed.This study was performed with techniques to keep radiation doses as low as reasonably achievable (ALARA). Individualized dose reduction techniques using automated exposure control or adjustment of mA and/or kV according to the patient's size were employed. Abdomen: The lung bases are clear. The heart is normal in size. The liver has an unremarkable appearance, without evidence of mass or biliary ductal dilatation. The gallbladder is present. The spleen is unremarkable. No adrenal mass is present. The pancreas has an unremarkable appearance. The kidneys are normal, without evidence of mass or hydronephrosis. The aorta is normal in caliber. There is no free fluid or adenopathy. No mass or abnormal fluid collection is seen. Pelvis: The appendix is normal. There has been interval improvement in the inflammatory change adjacent to the sigmoid colon. There is diverticulosis of the descending and sigmoid colon. The urinary bladder is unremarkable. No inflammatory process is seen. There is a right inguinal hernia containing fat. There is no evidence of bowel obstruction. There are moderate degenerative changes of the lumbar spine. IMPRESSION: Interval improvement in previous sigmoid diverticulitis. Descending and sigmoid colon diverticulosis without evidence of acute diverticulitis. Normal appendix. Reviewed, Interpreted and Dictated by Eusebio Hernandez III, MD Transcribed by Beto Paulino Authenticated and [facility]
--- NOTE | 2022-02-12 08:42 | CT_ITS ---
FINAL REPORT CLINICAL HISTORY: RECURRENT FEVER; ABDOMINAL PAIN FINDINGS: Axial CT images of the chest were obtained with contrast. Coronal reformatted images were also obtained. This study was performed with techniques to keep radiation doses as low as reasonably achievable, (ALARA). Individualized dose reduction techniques using automated exposure control or adjustment of mA and/or KV according to the patient''''s size were employed. There is no evidence of mediastinal or hilar mass or adenopathy.No axillary mass or adenopathy is identified. On lung window images, no pulmonary mass or dominant pulmonary nodule is identified. No localized pulmonary inflammatory process is identified. There is moderate degenerative change of the thoracic spine. IMPRESSION: No mass or localized inflammatory process. Reviewed, Interpreted and Dictated by Eusebio Hernandez III, MD Transcribed by Beto Paulino Authenticated and . [facility]
== END ==
PROVIDERS: PCP Internal Medicine Adolescent Medicine; Visit Provider Internal Medicine Adolescent Medicine
DX: R10.84 Generalized abdominal pain (principal); A68.9 Relapsing fever, unspecified
CPT/HCPCS: 71260; 74177; Q9967

== ENCOUNTER → 2022-05-29 11:00 | Outpatient (CLI) | payer MEDICARE, OTHER, SELFPAY ==
--- NOTE | 2022-05-29 | CA_ITS ---
FINAL REPORT CLINICAL HISTORY: .HTN, Headaches FINDINGS: An ultrasound of the carotid arteries was performed. Duplex Doppler evaluation with spectral analysis was performed. The peak systolic velocity of the right common carotid artery is 88 cm/s. The peak systolic velocity of the right internal carotid artery is 73 cm/s and end diastolic velocity 17 cm/s. A small amount of plaque is present. The right external carotid artery is patent. The right vertebral artery is patent with antegrade flow. ICA/CCA ratio: 1.1 The peak systolic velocity of the left common carotid artery is 115 cm/s. The peak systolic velocity of the left internal carotid artery is 101 cm/s and end diastolic velocity 22 cm/s. A small amount of plaque is present. The left external carotid artery is patent. The left vertebral artery is patent with antegrade flow. ICA/CCA ratio: 0.88 Bilateral patent vertebral arteries with antegrade flow. IMPRESSION: Less than 50% bilateral carotid stenosis. Reviewed, Interpreted and Dictated by Eusebio Hernandez III, MD Transcribed by Beto Paulino Authenticated and [facility]
== END ==
PROVIDERS: PCP Internal Medicine Adolescent Medicine; Visit Provider Nurse Practitioner Family
DX: R55 Syncope and collapse (principal)
CPT/HCPCS: 93880

== ENCOUNTER 2022-11-16 13:32 | Emergency (ER) | payer MEDICARE, OTHER, SELFPAY ==
[2022-11-16 13:32] VITALS: BP 129/92; PULSE 72; RESP 17; TEMP 36.6; O2SAT 96; BMI 34.2
--- NOTE | 2022-11-16 13:34 | HMH.EDGENADL ---
Discharge Plan Disposition Patient Disposition: Home, Self-Care Prescriptions Prescriptions: New levofloxacin 750 mg tablet 750 mg PO DAILY 7 Days Qty: 7 0RF No Action losartan 50 mg tablet 50 mg PO DAILY omeprazole 20 mg capsule,delayed release(DR/EC) 20 mg PO DAILY Qty: 90 0RF metoprolol succinate 25 mg tablet extended release 24 hr 25 mg PO DAILY Qty: 30 5RF atorvastatin 40 MG tablet 40 mg PO HS oxycodone-acetaminophen 1 EACH tablet 1 tab PO Q6HP PRN (Reason: Moderate To Severe Pain) Qty: 15 0RF indomethacin 25 MG capsule 25 mg PO TID Qty: 21 0RF metronidazole 500 MG tablet 500 mg PO Q8 Qty: 21 0RF Referrals Follow up/Referrals: Fer Roman MD [Primary Care Provider] - See instructions Activity Restrictions/Add. Instructions Additional Instructions/Restrictions: Your symptoms today are consistent with a viral syndrome however with your fever and your significant maxillary sinusitis symptoms we will treat for a superimposed bacterial acute sinusitis. Please take Tylenol and ibuprofen as needed for pain the steroid you are given today should last for 72 hours and should improve your pain and pressure symptoms. Please take your antibiotic as indicated and return to your primary care doctor or to the emergency department any worsening complaints. Clinical Impressions Clinical Impression: Acute bacterial sinusitis, URI (upper respiratory infection), Pharyngitis Discharge ED Provider: Davis Heath General Adult HPI General Chief complaint: Upper Respiratory Infection Stated complaint: Sore throat Time Seen by Provider: 11/16/22 13:34 History of Present Illness HPI narrative: Patient is a 67-year-old male here with facial and sinus pressure and high fever. Patient states that he started having flulike symptoms on Friday a cough sore throat and myalgias. He had a temperature that was greater than 101. Subsequently those symptoms went away but he is having persistent throat pain as well as severe maxillary sinus pressure. Patient denies any severe headaches or neurologic symptoms has not had any antipyretics today. No difficulty with swallowing or breathing at the moment. Related Data Home Medications Medication Instructions Recorded Confirmed atorvastatin 40 mg tablet 40 mg PO HS Cholesterol 12/27/21 02/01/22 losartan 50 mg tablet 50 mg PO DAILY 02/01/22 02/01/22 Previous Rx's Medication Instructions Recorded omeprazole 20 mg capsule,delayed 20 mg PO DAILY ppi #90 caps 08/10/21 release indomethacin 25 mg capsule 25 mg PO TID #21 caps 01/11/22 oxycodone-acetaminophen 5 mg-325 1 tab PO Q6HP PRN Moderate To 01/11/22 mg tablet Severe Pain #15 tabs metronidazole 500 mg tablet 500 mg PO Q8 #21 tabs 01/21/22 metoprolol succinate 25 mg 25 mg PO DAILY #30 tabs 02/11/22 tablet,extended release 24 hr levofloxacin 750 mg tablet 750 mg PO DAILY 7 days #7 tabs 11/16/22 Allergies Allergy/AdvReac Type Severity Reaction Status Date / Time Penicillins [PENICILLINS] Allergy Mild Verified 02/01/22 08:54 [facility] Disclaimer: The information contained in this section may have been updated after the patient was seen, as this information can be updated by other users. Medical History (Updated 11/16/22 @ 13:45 by Davis Heath MD) Agatston coronary artery calcium score between 100 and 199 CAD (coronary artery disease) HLD (hyperlipidemia) ANTONIO (obstructive sleep apnea) Unstable angina pectoris Social History Smoking Status: Former smoker alcohol intake: never substance use type: denies use current occupational status: employed Travel in the last 8 weeks: None household members: spouse housing: house ROS Obtained: Yes All systems reviewed & no additional complaints except as documented Physical Exam General General appearance: alert ENT ENT exam: Present other (Maxillary sinus tenderness, erythematous posterior oropharynx
--- NOTE | 2022-11-16 13:35 | PC.NURSE ---
DR ATWOOD AT BEDSIDE
[2022-11-16 13:50] VITALS: BP 129/92; PULSE 72; RESP 17; TEMP 36.6; O2SAT 96
== END 2022-11-16 13:50 | disposition home or self-care (01) ==
PROVIDERS: Emergency Provider Student in an Organized Health Care Education/Training Program; PCP Internal Medicine Adolescent Medicine
DX: J01.90 Acute sinusitis, unspecified (principal); R50.9 Fever, unspecified; I25.110 Atherosclerotic heart disease of native coronary artery with unstable angina pectoris; E78.5 Hyperlipidemia, unspecified; G47.33 Obstructive sleep apnea (adult) (pediatric); Z87.891 Personal history of nicotine dependence
CPT/HCPCS: 99283; 99284

== ENCOUNTER → 2022-11-27 10:41 | Outpatient (CLI) | payer MEDICARE, OTHER, SELFPAY ==
--- NOTE | 2022-11-27 10:45 | XR_ITS ---
FINAL REPORT CLINICAL HISTORY: CHRONIC COUGH COMPARISON: 08/09/2021 FINDINGS: Two views of the chest were obtained. The heart size and pulmonary vascularity are within normal limits. The mediastinum is normal. No acute pulmonary abnormality is identified. There is no pneumothorax. The bony thorax is intact. IMPRESSION: No active cardiopulmonary disease. Reviewed, Interpreted and Dictated by Eusebio Hernandez III, MD Transcribed by Jojo Peralta Authenticated and [facility]
== END ==
PROVIDERS: PCP Internal Medicine Adolescent Medicine; Visit Provider Physician Assistant
DX: R05.3 Chronic cough (principal)
CPT/HCPCS: 71046

== ENCOUNTER → 2022-12-03 09:49 | Outpatient (CLI) | payer MEDICARE, OTHER, SELFPAY ==
--- NOTE | 2022-12-03 | CA_ITS ---
APPROVED REPORT Exam: Exercise Treadmill Technologist: Halima Pack, Ht: 5 ft 11 in Wt: 260 lbs BSA: 2.36 m2 HR: 70 bpm BP: 136/84 mmHg Rhythm: SR Medical History Medical History: HTN, Hyperlipidemia Medications: Omeprazole,,,,, Aspirin,,,,, Losartan,,,,, Atorvastatin,,,,, Allergies: PENICILLIN Cardiac Risk Factors: HTN, Hyperlipidemia, FHX of CAD, Smoking Stress Test Details Test: Roosevelt HR Resting HR: 73 bpm Max Heart Rate (APMHR): 151 bpm Max HR Achieved: 139 bpm Target HR (85% APMHR): 128 bpm % of APMHR: 92 Recovery HR: 73 bpm BP Resting BP: 136/84 mmHg Max BP: 160/90 mmHg Recovery BP: 129.0/67.0 mmHg ECG Resting ECG: SR Clinical Exercise duration: 06:07 min Highest Stage Achieved: Exercise capacity: 7.0 METs Stress ECG Conclusion MAX HR: 139 % OF PM: 92% MAX BP: 160/90 METS: 7.0 TEST STOPPED DUE TO HIP PAIN PT HAD DYSPNEA, KNEE PAIN, CHEST PAIN, HIP PAIN, AND CHEST PRESSURE LESS THAN 1MM ST DEPRESSION EXERCISE INDUCED ANGINA PECTORIS -But no ECG changes of ischemia. NORMAL EKG RESPONSE TO EXERCISE NORMAL GXT except for reported symptoms Test Summary REST . . . . . . . Sitting REST 02:38 0.0 0.0 73 . 136/ 84 . . Stage 1 01:00 10.0 1.7 103 . . . . Stage 1 02:00 10.0 1.7 113 . 130/ 70 . . Stage 1 03:00 10.0 1.7 115 . 130/ 70 . . Stage 2 01:00 12.0 2.5 123 . . . . Stage 2 02:00 12.0 2.5 130 . 160/ 90 . . Stage 2 03:00 12.0 2.5 133 . 160/ 90 . . Stage 3 00:07 14.0 3.4 136 . . . Stop exercise at 06:07 RECOVERY 01:00 0.0 0.0 113 . . . . RECOVERY 02:00 0.0 0.0 92 . 134/ 70 . . RECOVERY 03:00 0.0 0.0 88 . 152/ 74 . . RECOVERY 04:00 0.0 0.0 80 . 138/ 65 . . RECOVERY 05:00 0.0 0.0 70 . 138/ 65 . . RECOVERY 05:18 0.0 0.0 78 . 129/ 67 . . Electronically signed by : Fer Roman MD 12/03/2022 20:13:30
== END ==
PROVIDERS: PCP Internal Medicine Adolescent Medicine; Visit Provider Physician Assistant
DX: I25.10 Atherosclerotic heart disease of native coronary artery without angina pectoris (principal); I10 Essential (primary) hypertension; R55 Syncope and collapse
CPT/HCPCS: 93017

== ENCOUNTER → 2023-04-28 10:13 | Outpatient (CLI) | payer MEDICARE, OTHER, SELFPAY ==
--- NOTE | 2023-04-28 10:20 | XR_ITS ---
FINAL REPORT CLINICAL HISTORY: ARTHRALGIA OF LT TEMPOROMANDIBULAR JOINT FINDINGS: FACIAL BONES 3 views of the facial bones were obtained. There is no acute fracture or dislocation. There is mild mucoperiosteal thickening seen at the periphery of the left maxillary sinus. Visualized joint spaces normally aligned. Soft tissues are unremarkable. IMPRESSION: No acute bony abnormality. Reviewed, Interpreted and Dictated by Lucian Hanley MD Transcribed by Margie Toribio Authenticated and [facility]
[2023-04-28 11:38] LABS: Chloride 106 mmol/L (98-107); Potassium 4.3 mmoL/L (3.5-5.1); Sodium 143 mmol/L (136-145)
[2023-04-28 11:41] LABS: Anion Gap 11.3 mEq/L (5-15); Blood Urea Nitrogen 25 mg/dl (9-20); Calcium 9.1 mg/dl (8.4-10.2); Carbon Dioxide 30 mmol/L (22.0-30.0); Estimated Glomerular Filt Rate 27 ml/min (>60); GFR (African American) 33 ML/MIN (>60); Glucose 100 mg/dl (74-100)
== END ==
PROVIDERS: PCP Internal Medicine Adolescent Medicine; Visit Provider Nurse Practitioner Family
DX: M26.622 Arthralgia of left temporomandibular joint (principal)
CPT/HCPCS: 70150; 80048

== ENCOUNTER → 2023-05-06 06:42 | Outpatient (CLI) | payer MEDICARE, OTHER, SELFPAY ==
--- NOTE | 2023-05-06 07:13 | CT_ITS ---
FINAL REPORT CLINICAL HISTORY: ABN GAIT FINDINGS: Axial images of the head were obtained without contrast. Coronal reformatted images were also obtained.This study was performed with techniques to keep radiation doses as low as reasonably achievable (ALARA). Individualized dose reduction techniques using automated exposure control or adjustment of mA and/or kV according to the patient''s size were employed. There is no evidence of intracranial hemorrhage or mass. The ventricular size is within normal limits. There is no evidence of shift of the midline structures. No abnormal extra axial fluid collection is identified. No skull abnormality is seen on the bone window images. IMPRESSION: No acute intracranial abnormality. Reviewed, Interpreted and Dictated by Eusebio Hernandez III, MD Transcribed by Jojo Peralta Authenticated and [facility]
--- NOTE | 2023-05-06 07:13 | CT_ITS ---
FINAL REPORT TECHNIQUE: Axial images through the abdomen and pelvis were performed without contrast. This study was performed with techniques to keep radiation doses as low as reasonably achievable, (ALARA). Individualized dose reduction techniques using automated exposure control or adjustment of mA and/or kV according to the patient's size were employed. CLINICAL HISTORY: GROSS HEMATURIA,ELEVATED CREATINE KINASE COMPARISON: 01/21/2022 FINDINGS: ABDOMEN: There is mild scarring in the lung bases. The heart size is normal. There is fatty infiltration of the liver. The spleen is normal. No adrenal mass is identified. The aorta is normal in caliber. There is no significant free fluid or adenopathy. There is no nephrolithiasis. There is no hydronephrosis. PELVIS: The appendix is not identified. There is widespread diverticulosis without evidence of diverticulitis. There is bladder wall thickening, likely inflammatory. Right inguinal hernia containing fat is identified. There is no significant free fluid or adenopathy. IMPRESSION: No hydronephrosis or nephrolithiasis. Diverticulosis without evidence of diverticulitis. Reviewed, Interpreted and Dictated by Eusebio Hernandez III, MD Transcribed by Jojo Peralta Authenticated and [facility]
== END ==
PROVIDERS: PCP Internal Medicine Adolescent Medicine; Visit Provider Nurse Practitioner Family
DX: R26.9 Unspecified abnormalities of gait and mobility (principal)
CPT/HCPCS: 70450; 74176

== ENCOUNTER → 2023-05-19 11:01 | Outpatient (CLI) | payer MEDICARE, OTHER, SELFPAY ==
[2023-05-26 09:18] LABS: PSA, Free 0.41; Prostate Specific Ag 1.2
== END ==
PROVIDERS: PCP Internal Medicine Adolescent Medicine; Visit Provider Urology
DX: N40.0 Benign prostatic hyperplasia without lower urinary tract symptoms (principal)
CPT/HCPCS: 36415; 84153; 84154

== ENCOUNTER → 2023-05-22 15:09 | Outpatient (CLI) | payer MEDICARE, OTHER, SELFPAY ==
[2023-05-22 15:16] LABS: Microscopic, Urine URINE MICROSCOPIC (MICROSCOPIC)
[2023-05-22 15:40] LABS: Appearance,Urine CLEAR (Clear); Bilirubin,Urine Negative (Negative); Blood, Urine Negative (Negative); Color,Urine YELLOW (Yellow); Glucose,Urine (UA) Negative (Negative); Ketones,Urine Negative (Negative); Leukocyte Esterase,Urine Negative (Negative); Nitrate,Urine Negative (Negative); Protein,Urine Negative (Negative); Urobilinogen,Urine 0.2 EU/dl (0.2)
[2023-05-22 15:55] LABS: Bacteria,Urine Trace /lpf; Squamous Epithelial Cell,Urine Occasional #/hpf (0-5)
[2023-05-22 16:24] LABS: Chloride 104 mmol/L (98-107); Potassium 4.5 mmoL/L (3.5-5.1); Sodium 141 mmol/L (136-145)
[2023-05-22 16:25] LABS: Albumin Level 4.5 g/dl (3.5-5.0)
[2023-05-22 16:27] LABS: Anion Gap 12.5 mEq/L (5-15); Blood Urea Nitrogen 20 mg/dl (9-20); Carbon Dioxide 29 mmol/L (22.0-30.0); Estimated Glomerular Filt Rate 46 ml/min (>60); GFR (African American) 56 ML/MIN (>60); Phosphorous 4.5 mg/dl (2.5-4.5)
[2023-05-22 16:28] LABS: Calcium 9.1 mg/dl (8.4-10.2); Glucose 120 mg/dl (74-100)
[2023-05-22 16:50] LABS: Creatinine,Urine Random 91 mg/dL (Not Estab.)
== END ==
PROVIDERS: PCP Internal Medicine Adolescent Medicine; Visit Provider Internal Medicine Nephrology
DX: N18.30 Chronic kidney disease, stage 3 unspecified (principal)
CPT/HCPCS: 36415; 80069; 81001; 82570; 84155

== ENCOUNTER 2023-11-04 11:20 | Outpatient (POV) | payer MEDICARE, OTHER, SELFPAY | END 2023-11-04 23:59 | disposition home or self-care (01) | LOC: SC 11:21 | PROVIDERS: PCP Internal Medicine Adolescent Medicine; Visit Provider Dermatology | DX: Z00.00 Encounter for general adult medical examination without abnormal findings (principal) ==

== ENCOUNTER 2024-02-20 13:27 | Outpatient (POV) | payer MEDICARE, OTHER, SELFPAY | END 2024-02-20 23:59 | disposition home or self-care (01) | LOC: SC 13:29 | PROVIDERS: Visit Provider Student in an Organized Health Care Education/Training Program | DX: Z00.00 Encounter for general adult medical examination without abnormal findings (principal) ==

== ENCOUNTER 2024-09-16 12:10 | Outpatient (CLI) | payer MEDICARE, OTHER, SELFPAY ==
[2024-09-16 12:17] LABS: Microscopic, Urine URINE MICROSCOPIC (MICROSCOPIC)
[2024-09-16 12:37] LABS: Hematocrit 52.1 % (42.0-52.0); Hemoglobin 17.5 g/dL (14.1-18.0); Mean Corpuscular HGB Conc 33.6 g/dL (31.8-35.4); Mean Corpuscular Volume 89.2 fl (80-94); Platelet Count 240 K/mm3 (142-424); Red Blood Count 5.84 M/mm3 (4.60-6.20); Red Cell Distribution Width 12.8 % (11.5-17.5); White Blood Count 8.5 K/mm3 (4.8-10.8)
[2024-09-16 12:46] LABS: Appearance,Urine CLEAR (Clear); Bilirubin,Urine Negative (Negative); Blood, Urine Negative (Negative); Color,Urine YELLOW (Yellow); Glucose,Urine (UA) Negative (Negative); Ketones,Urine Negative (Negative); Leukocyte Esterase,Urine Negative (Negative); Nitrate,Urine Negative (Negative); Protein,Urine Negative (Negative); Specific Gravity, Urine 1.025 (1.005-1.030); Urobilinogen,Urine 0.2 EU/dl (0.2)
[2024-09-16 12:58] LABS: Albumin Level 4.3 g/dl (3.5-5.0); Anion Gap 13.7 mEq/L (5-15); Blood Urea Nitrogen 18 mg/dl (9-20); Calcium 9.6 mg/dl (8.4-10.2); Carbon Dioxide 31 mmol/L (22.0-30.0); Chloride 104 mmol/L (98-107); Estimated Glomerular Filt Rate 60 ml/min (>60); GFR (African American) 72 ML/MIN (>60); Glucose 88 mg/dl (74-100); Phosphorous 3.8 mg/dl (2.5-4.5); Potassium 4.7 mmoL/L (3.5-5.1); Sodium 144 mmol/L (136-145); Uric Acid 8.6 mg/dl (3.5-8.5)
[2024-09-16 13:00] LABS: Microalbumin/Creatinine Ratio 16.5
[2024-09-16 13:01] LABS: Creatinine,Urine Random 137 mg/dL (Not Estab.)
[2024-09-16 13:02] LABS: RBC,Urine Occasional #/hpf (0-3); Squamous Epithelial Cell,Urine Occasional #/hpf (0-5); WBC,Urine Occasional #/hpf (0-3)
[2024-09-16 13:10] LABS: Intact Parathyroid Hormone 119.8 pg/mL (7.5-53.5)
[2024-09-16 13:15] LABS: 25-OH Vitamin D, Total 28.3 ng/mL (30-100)
== END 2024-09-16 23:59 | disposition home or self-care (01) ==
PROVIDERS: PCP Internal Medicine Adolescent Medicine; Visit Provider Student in an Organized Health Care Education/Training Program
DX: N18.30 Chronic kidney disease, stage 3 unspecified (principal)
CPT/HCPCS: 36415; 80069; 81001; 82043; 82306; 82570; 83970; 84156; 84550; 85027

== ENCOUNTER 2024-10-26 14:01 | Outpatient (CLI) | payer MEDICARE, OTHER, SELFPAY ==
--- NOTE | 2024-10-26 | CT_ITS ---
PROCEDURE INFORMATION: Exam: CT Abdomen And Pelvis Without Contrast Exam date and time: 10/26/2024 2:20 PM Age: 69 years old Clinical indication: Other: Gross hematuria with clots TECHNIQUE: Imaging protocol: Computed tomography of the abdomen and pelvis without contrast. Radiation optimization: All CT scans at this facility use at least one of these dose optimization techniques: automated exposure control; mA and/or kV adjustment per patient size (includes targeted exams where dose is matched to clinical indication); or iterative reconstruction. COMPARISON: No relevant prior studies available. FINDINGS: Lungs: Lung bases are clear. Liver: Normal. No mass. Gallbladder and biliary ducts: Normal. No calcified stones. No ductal dilation. Pancreas: Unremarkable. Main pancreatic duct is not significantly dilated. Spleen: Normal. No splenomegaly. Adrenal glands: Normal. No mass. Kidneys and ureters: Kidneys are unremarkable. No calculi or hydronephrosis detected. Stomach and bowel: Scattered diverticuli large bowel without evidence of diverticulitis. Appendix: No evidence of appendicitis. Intraperitoneal space: Unremarkable. No free air. No significant fluid collection. Vasculature: Scattered atherosclerotic changes of the abdominal aorta and iliac vessels. No aortic aneurysm. Lymph nodes: Unremarkable. No enlarged lymph nodes. Urinary bladder: Unremarkable as visualized. Reproductive: Unremarkable as visualized. Bones/joints: Unremarkable. No acute fracture. Soft tissues: There is an 8 x 6 cm fat containing right inguinal hernia that also contains a loop of sigmoid colon without evidence of obstruction. IMPRESSION: 1. No acute findings within the abdomen or pelvis. 2. Unremarkable noncontrast CT exam of the kidneys ureters and bladder. 3. Moderate size right inguinal hernia containing a loop of sigmoid colon without evidence of obstruction. 4. Colonic diverticulosis. No evidence of acute diverticulitis.
== END 2024-10-26 23:59 | disposition home or self-care (01) ==
LOC: RAD 14:02
PROVIDERS: PCP Internal Medicine Adolescent Medicine; Visit Provider Internal Medicine Adolescent Medicine
DX: K40.90 Unilateral inguinal hernia, without obstruction or gangrene, not specified as recurrent (principal); K57.30 Diverticulosis of large intestine without perforation or abscess without bleeding; R31.0 Gross hematuria
CPT/HCPCS: 74176

== ENCOUNTER 2025-01-15 08:56 | Emergency (ER) | payer MEDICARE, OTHER, SELFPAY ==
[2025-01-15] VITALS (10 sets, daily range): BP systolic 114–147; BP diastolic 73–84; PULSE 44–56; RESP 13–19; TEMP 36.7; O2SAT 93–96; BMI 36.9
--- NOTE | 2025-01-15 08:57 | ECG_ITS ---
APPROVED REPORT Exam: Resting ECG HR:48 bpm ECG Measurements Heart Rate 48 AXES AR 181 P 61 QRSd 91 QRS 46 QT 434 T 71 QTc 401 Conclusion SINUS BRADYCARDIA BORDERLINE ECG UNCONFIRMED REPORT Sinus bradycardia. Mild ST elevation in aVF QTc normal at 401. Electronically signed by : ALMA GOLDEN, 01/17/2025 14:32:29
--- NOTE | 2025-01-15 09:01 | XR_ITS ---
PROCEDURE INFORMATION: Exam: XR Chest Exam date and time: 01/15/2025 9:21 AM Age: 69 years old Clinical indication: Shortness of breath; Additional info: Cp, shortness of breath TECHNIQUE: Imaging protocol: Radiologic exam of the chest. Views: 2 views. COMPARISON: CR XR CHEST 2V 11/27/2022 10:47 AM FINDINGS: Lungs: Unremarkable. No consolidation. Pleural spaces: Unremarkable. No pleural effusion. No pneumothorax. Heart/Mediastinum: Unremarkable. No cardiomegaly. Bones/joints: Unremarkable. IMPRESSION: No acute findings.
--- NOTE | 2025-01-15 09:03 | ED_ITS ---
Discharge Plan Disposition Patient Disposition: Home, Self-Care Prescriptions Prescriptions: No Action losartan 100 mg tablet 100 mg PO Patient Comments: TAKE 1 TABLET BY MOUTH EVERY DAY aspirin 81 mg tablet,delayed release (DR/EC) 81 mg PO DAILY amlodipine 10 mg tablet 10 mg PO Patient Comments: TAKE 1 TABLET BY MOUTH EVERY DAY omeprazole 20 mg capsule,delayed release(DR/EC) 20 mg PO DAILY Qty: 90 0RF atorvastatin 40 MG tablet 40 mg PO HS Referrals Follow up/Referrals: Hadley Maharaj MD [Staff Physician, Cardiology] - See instructions Provider,MD Nallely [Primary Care Provider, Medical] - See instructions Activity Restrictions/Add. Instructions Additional Instructions/Restrictions: You do not have any evidence of a heart attack on today's visit. I do encourage you to follow-up with Dr. Maharaj's office and Dr. Roman this week. If you develop any new or worsening symptoms, such as crushing chest pain or tightness in your chest, worsening shortness of breath, nausea or vomiting, or if you become concerned for your health for any reason, return to the emergency department for evaluation Clinical Impressions Clinical Impression: Left-sided chest pain Print Language Print Language: South African Discharge ED Provider: Trevor Solis Adult HPI General Chief complaint: Chest Pain Stated complaint: CP Time Seen by Provider: 01/15/25 08:56 Mode of Arrival: Ambulatory Source of Information: Patient Limitations: No Limitations History of Present Illness HPI narrative: Mukund Rainey is a 69-year-old male with a history of hyperlipidemia, gout, hypertension, coronary artery disease who presents to the emergency department for sudden onset tightness in his left upper chest wall that radiates down his left arm and into his left jaw. He states that he had just walked into his den approximately 15 minutes prior to arrival when symptoms suddenly started. His states that she gave him a full dose aspirin. He states that currently, the pain is very mild and only in his arm and neck. He denies any history of heart attacks or heart failure. He denies any nausea, vomiting, abdominal pain, recent cough or fever. He states that he has not had pain like this in the past. Related Data Home Medications ?Medication ?Instructions ?Recorded ?Confirmed atorvastatin 40 mg tablet 40 mg PO HS Cholesterol 12/1405/19/23 amlodipine 10 mg tablet 10 mg PO 05/19/23 05/19/23 aspirin 81 mg tablet,delayed 81 mg PO DAILY 05/19/23 1 07/20/22 release losartan 100 mg tablet 100 mg PO 05/19/23 05/19/23 Previous Rx's ?Medication ?Instructions ?Recorded omeprazole 20 mg capsule,delayed 20 mg PO DAILY ppi #9 0 caps 08/10/21 release Allergies Allergy/AdvReac Type Severity Reaction Status Date / Time Penicillins (PENICILLINS) Allergy Mild Verified 05/19/23 10:35 [facility] Disclaimer: The information contained in this section may have been updated after the patient was seen, as this information can be updated by other users. Medical History (Updated 01/15/25 @ 12:49 by Trevor Solis MD) Unstable angina pectoris HLD (hyperlipidemia) Agatston coronary artery calcium score between 100 and 199 CAD (coronary artery disease) ANTONIO (obstructive sleep apnea) Surgical History (Updated 05/19/23 @ 10:37 by ELLEN Martin) History of elbow surgery History of tonsillectomy Social History Smoking Status: Former smoker alcohol intake: never substance use type: denies use current occupational status: employed Travel in the last 8 weeks?: None household members: spouse housing: house Have you lived/traveled outside US in past 30 days?: No Contact w/someone who lives/traveled outside US past 30 days?: No Exposure to someone with infectious disease in past 14 days?: No Do you have a fever (greater than 100.4 F or 38 C)?: No Have you tested positive for COVID-19?: No Exposed to someone with COVID-19 in past 14 days?: No Do you have a sore throat?: No Do you have a cough?: No Do you have any weakness?: No Do you have any diarrhea?: No Are you experiencing any unusual bleeding?: No Do you have any muscle aches/pain?: No Do you have any abdominal pain?: No Are you experiencing loss of taste or smell?: No Other Medical History Have you received the Flu Vaccine for this season: No Have you received the Pneumonia Vaccine: Yes ROS Obtained: Yes Systems reviewed as appropriate & no additional complaints except as documented Physical Exam General General appearance: alert, in no apparent distress and obese Head Head exam: atraumatic Eye Eye exam: Present normal appearance ENT ENT exam: Present normal external ear exam Neck Neck exam: Present full ROM Chest Chest inspection: Present symmetric chest wall rise Respiratory Respiratory exam: Present normal lung sounds bilaterally; Absent respiratory distress, wheezes or stridor Cardiovascular Cardiovascular exam: Present regular rate and normal rhythm Abdominal Exam Abdominal exam: Present soft; Absent distention, tenderness or guarding exam: Present deferred Extremities Exam Extremities exam: Present normal inspection and other (2+ radial pulses bilaterally); Absent edema Back Exam Back exam: Present normal inspection Neurological Exam Neurological exam: Present alert and oriented X3 Psychiatric Psychiatric exam: Present normal affect Skin Skin exam: Present warm and dry Medical Decision Making Medical Records Screening: Per USPSTF and CDC recommendations, given the prevalence of disease in our region, it is our hospital?s policy to screen for HIV and viral Hepatitis for all patients aged 18 and over and those with ongoing risk factors. Marc Inquiry Pt receiving controlled substance: No Vital Signs: 01/15/25 08:59 01/15/25 09:29 01/15/25 10:00 Temperature 98.1 F Temperature Source Oral Pulse Rate 56 L 47 L Pulse Rate [Right] 56 L Respiratory Rate 18 19 14 Blood Pressure 114/81 127/78 Blood Pressure [Right Arm] 147/80 H Blood Pressure Mean Blood Pressure Mean [Right Arm] 102 Blood Pressure Source Blood Pressure Source [Right Arm] Automatic Cuff Blood Pressure Position [Right Arm] Sitting 02 Sat by Pulse Oximetry 96 94 L 95 Oxygen Delivery Method Room Air Room Air 01/15/25 10:30 01/15/25 11:00 01/15/25 11:39 Temperature Temperature Source Pulse Rate 48 L 50 L 47 L Pulse Rate [Right] Respiratory Rate 16 18 13 Blood Pressure 127/73 121/78 138/76 Blood Pressure [Right Arm] Blood Pressure Mean 92 95 Blood Pressure Mean [Right Arm] Blood Pressure Source Blood Pressure Source [Right Arm] Blood Pressure Position [Right Arm] 02 Sat by Pulse Oximetry 95 96 95 Oxygen Delivery Method Room Air 01/15/25 11:48 01/15/25 12:00 01/15/25 12:41 Temperature Temperature Source Pulse Rate 48 L 44 L 48 L Pulse Rate [Right] Respiratory Rate 16 15 15 Blood Pressure 138/76 134/82 125/84 Blood Pressure [Right Arm] Blood Pressure Mean Blood Pressure Mean [Right Arm] Blood Pressure Source Blood Pressure Source [Right Arm] Blood Pressure Position [Right Arm] 02 Sat by Pulse Oximetry 96 96 93 L Oxygen Delivery Method Room Air Room Air 01/15/25 12:53 Temperature 98.1 F Temperature Source Oral Pulse Rate 49 L Pulse Rate [Right] Respiratory Rate 15 Blood Pressure 125/84 Blood Pressure [Right Arm] Blood Pressure Mean Blood Pressure Mean [Right Arm] Blood Pressure Source Automatic Cuff Blood Pressure Source [Right Arm] Blood Pressure Position [Right Arm] 02 Sat by Pulse Oximetry Oxygen Delivery Method Room Air Lab Data Lab Results 01/15/25 09:07: WBC 8.9, RBC 5.54, Hgb 16.6, Hct 49.1, MCV 88.6, MCH 30.0, MCHC 33.8, RDW 12.7, Plt Count 237, MPV 9.9, Neut % (Auto) 56.0, Lymph % (Auto) 32.6, [place] % (Auto) 7.9, Eos % (Auto) 2.6, Baso % (Auto) 0.7, Neut # (Auto) 5.0, Lymph # (Auto) 2.9, [place] # (Auto) 0.7, Eos # (Auto) 0.2, Baso # (Auto) 0.1, D-Dimer 0.48, Sodium 137, Potassium 4.3, Chloride 101, Carbon Dioxide 29, Anion Gap 11.3, BUN 20, Creatinine 1.10, Estimated Creat Clear 105, Estimated GFR 66, Est GFR ( Amer) 80, Glucose 134 H, Calcium 9.9, Magnesium 2.0, Total Bilirubin 0.7, AST 47, ALT 47, Alkaline Phosphatase 97, Troponin I < 0.01, NT-Pro-B Natriuret Pep 71.9, Total Protein 7.3, Albumin 3.7, Globulin 3.6 H, A lbumin/Globulin Ratio 1.0 L, HCV Ab CARLY w/Rflx PCR Qn Negative, HIV Ag/Ab Combo Qual Negative 01/15/25 11:47: Troponin I < 0.01 01/15/25 09:07 01/15/25 09:07 Orders (Tests/Meds): ED MEDICATIONS Discontinued Medications Generic Name Dose Route Start Last Admin Trade Name Freq PRN Reason Stop Dose Admin Acetaminophen 1,000 mg 01/15/25 09:18 01/15/25 09:26 Acetaminophen 500mg Tab PO 01/15/25 09:19 1,000 mg ONCE ONE Administration Methocarbamol 1,000 mg 01/15/25 09:18 01/15/25 10:37 Methocarbamol 500mg Tablet PO 01/15/25 09:19 1,000 mg ONCE ONE Administration Nitroglycerin 0.4 mg 01/15/25 09:01 01/15/25 09:18 Nitroglycerin 0.4mg Sl Tablet SL 01/15/25 09:02 Not Given ONCE ONE ORDERS Category Date Time Status CXR 2 view (NOT portable) [XR chest 2V] Stat Exams 01/15/25 09:01 Completed BNP [NT Pro Brain Natriuretic Pep.] Stat Lab 01/15/25 09:07 Completed CBC w/Auto Diff [Complete Blood Count Auto Diff] Stat Lab 01/15/25 09:07 Completed CMP [Comprehensive Metabolic Panel] Stat Lab 01/15/25 09:07 Completed D-Dimer Stat Lab 01/15/25 09:07 Completed HIV Combo Stat Lab 01/15/25 09:07 Completed Hepatitis C Ab Qual. W/ RFX Stat Lab 01/15/25 09:07 Completed Magnesium Stat Lab 01/15/25 09:07 Completed Troponin I Q3H Lab 01/15/25 11:47 Completed Troponin I Stat Lab 01/15/25 09:07 Completed ECG Data Tracing #1: I reviewed this ECG and interpreted as documented below: Sinus bradycardia with no T wave inversions. There is minimal ST elevation in aVF but no ST depression. QTc normal at 401. HEART Score History (anamnesis): Slightly suspicious ECG: Normal Age: >65 years Risk factors: Atherosclerosis history Troponin: </= normal limit HEART Score: 4 Medical Decision Narrative: Mukund Rainey is a 69-year-old male with a history of hyperlipidemia, gout, hypertension, coronary artery disease who presents to the emergency department for sudden onset tightness in his left upper chest wall that radiates down his left arm and into his left jaw. He states that he had just walked into his den approximately 15 minutes prior to arrival when symptoms suddenly started. His states that she gave him a full dose aspirin. He states that currently, the pain is very mild and only in his arm and neck. He denies any history of heart attacks or heart failure. He denies any nausea, vomiting, abdominal pain, recent cough or fever. He states that he has not had pain like this in the past. On arrival, patient is normotensive, mildly bradycardic with heart rate in the 50s, afebrile, maintaining appropriate oxygen saturation on room air. Physical exam, stated above, revealed overall well-appearing male in no respiratory distress. He speaking full sentences. Cardiopulmonary exam reveals no wheezing, rales or rhonchi. No murmurs are appreciated. He has equal pulses in bilateral upper extremities. Abdomen is soft, nontender and nondistended. Differential diagnosis includes, but is not limited to: ACS, pulmonary bruising, pneumonia, pneumothorax, low concern for aortic dissection or DVT at this time as there is no swelling in the upper extremity and patient has pulses present equally on both arms. The most morbid conditions were considered and workup was based on these. EKG was interpreted by me personally. Sinus bradycardia with no T wave inversions. There is minimal ST elevation in aVF but no ST depression. QTc normal at 401. Workup in the emergency department includes: 2 view chest x-ray, EKG, troponin, BNP, CBC with differential, CMP, magnesium level, D-dimer. Patient reportedly had received full dose aspirin prior to arrival. Will administer 1 sublingual nitroglycerin at this time Patient refused the nitroglycerin is states that his pain is continuing to resolve and he only has mild cramping pain in his left neck. Will offer Tylenol and Robaxin at this time. Workup shows no leukocytosis, no anemia, platelets within normal limits, D-dimer negative at 0.48, electrolytes within normal limits, no GAVINO, glucose normal at 134, liver enzymes within normal limits, bilirubin within normal limits, troponin negative x 2, BNP normal at 71.9. Chest x-ray was interpreted by me personally. No focal consolidations, no widening of the mediastinum, no pneumothorax, no enlarged cardiac silhouette. Grossly unremarkable chest x-ray. On reassessment, patient remained in stable condition. Patient stated that his symptoms have resolved at this time. His workup today is unremarkable for any acute pathology. Patient's heart score is 4. Patient does state that he was previously seen by Dr. Maharaj but does not have an appointment in the future. Will give him another referral to Dr. Maharaj and I encouraged him to follow-up with him in clinic. Also encouraged him to follow-up with his primary care doctor. Return precautions were given. All questions were answered. He demonstrated understanding and was in agreement this plan. He was then discharged from the emergency department in stable condition. Critical Care Critical Care Time Critical Care Time: No
--- OUTSIDE RECORDS SUMMARY | 2025-01-15 09:08 | XMS_ITS | Continuity of Care Document ---
Author Name [facility] Organization [facility] Care Team Providers Care Credit Verifier Name Role Phone [facility] Unavailable Unavailable Problems Combined list of problems from Department of Defense and Veterans Affairs facilities. It does not include entries that were removed or entered in error. Problem Status Onset Date Problem Type Date of Resolution Comments Source Essential hypertension Active Condition [facility] Exposure to potentially hazardous substance Active Condition [facility] GERD - Gastro-Esophageal Reflux Disease (SCT 830477976) Active Condition [facility] Gout (SNOMED CT 76864570) Active Condition [facility] Inguinal hernia Active Condition Jan 11, 2016 Entered By: FEDERICA YOUNGER Comment: rt inguinal region 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 Peyronie's disease Inactive Condition 07/20/2018 [facility] Social and personal history finding Inactive Condition 07/20/2018 Jul 10, 2015 Entered By: FEDERICA YOUNGER Comment: , 3 children, gc, 3, smoke 0; etoh min;Jul 10, 2015 Entered By: FEDERICA YOUNGER Comment: retired [employer], logistics officerl 2015 Entered By: FEDERICA YOUNGER Comment: enjoys woodworking [facility] Diagnosis: ICD-10-CM Z77.29 Contact with and exposure to other hazardous substances Active Diagnosis [facility] Medications Combined list of outpatient medications from Department of [facility] and Veterans Affairs facilities.Medications provided include 1) outpatient medications from the last 15 months, and 2) patient-reported medications. Medication Details Route Status Patient Instructions Prescription Expires Prescription Number Last Dispense Date Ordering Provider Order Date Order Qty Source ASPIRIN 81MG TAB,EC TAKE ONE TABLET BY MOUTH DAILY ORAL ACTIVE LILLI CAO 2020 [place] [facility] CARVEDILOL (CARVEDILOL ), 12.5MG, TABLET, ORAL, DabKick, 500 ea. BOTTLE Active [id number] 2023 180 Pharmac y Data Transac tion Service Facilit y COENZYME Q10 CAP/TAB TAKE 1 CAP/TAB BY MOUTH DAILY ORAL ACTIVE LILLI CAO 2020 [facility] LOSARTAN 50MG TAB TAKE ONE TABLET BY MOUTH DAILY ORAL ACTIVE LILLI CAO 2020 [facility] OMEPRAZOLE 20MG CAP,EC TAKE 1 CAPSULE BY MOUTH EVERY DAY 30 MINUTES BEFORE A MEAL ORAL ACTIVE JUDE YOUNGER 2016 [facility] ROSUVASTATI N CA 20MG TAB TAKE ONE TABLET BY MOUTH AT BEDTIME ORAL ACTIVE LILLI CAO 2020 [facility] Allergies, Adverse Reactions, Alerts Combined list of allergies from Department of [facility] and Veterans Affairs facilities. It does not include entries that were removed or entered in error. Substance Category Reaction Severity Reaction type Status Date Reported Comments Source PENICILLIN Propensity to adverse reactions to drug (finding) active 3 [facility] PENICILLIN Propensity to adverse reactions to drug (finding) HIVES, PASS OUT active 5 [facility] VANCOMYCIN Propensity to adverse reactions to drug (finding) Erythema active 7 [facility] Immunizations Combined list of available immunizations from the Department of Defense and Veterans Affairs facilities. Immunization Series Date Given Administered By Site Reaction Lot Number CVX Code Drug Poultry Husbandry Worker Status Comments Source INFLUENZA, UNSPECIFIED FORMULATION 2019 88 complet ed [facility] Influenza, high dose seasonal 2018 LINDA, () Not Given Influenza , high dose seasonal [facility] INFLUENZA, SEASONAL, INJECTABLE 2018 141 complet ed [facility] [facility] INFLUENZA, SEASONAL, INJECTABLE 2017 141 complet ed [facility] TETANUS TOXOID, UNSPECIFIED FORMULATION 2003 112 complet ed [facility] TD(ADULT) UNSPECIFIED FORMULATION 1991 [facility] 139 complet ed per pt.: rec'd on exit from , rec'd dT 1991 [facility] Encounters Combined list of: 1) Encounters from Department of Veterans Affairs facilities going backup to the last 18 months, not all [place] inpatient encounters are included; 2) Encounters from the Department of [facility] facilities going backup to 280 months. Location Location Details Encounter Type Encounter Number Reason For Visit Attending Provider ADM Date DC Date Status Disposition Source [facility] Outpatient Encounter [id number] 10/27 [place] [facility] BRIEF COMUNICAJ TECH-BSD [facility] [id number] Diagnos is: ICD-10- CM Z77.29 Contact with and exposur e to other hazardo us substan phoebe ST ESTER AKINS 10/29 [place] Outpatient Encounter [id number] ESTER AKINS 10/29 [place] [facility] Social History Combined list of available smoking, tobacco, and other social history from Department of Defense and Veterans Affairs facilities. Social History Type Response Date Comment [facility] e Tobacco smoking status NHIS OK-TOBACCO QUIT 15 YRS OR MORE 01/30/2021 [facility] History of tobacco use OK-TOBACCO FORMER USER 01/30/2021 [facility] History of tobacco use OK-TOBACCO QUIT 15 YRS OR MORE 08/10/2019 [facility] History of tobacco use V9 CURRENT TOBACCO USER 07/23/2016 [facility] History of tobacco use V9 CURRENT TOBACCO USER 07/10/2015 [facility] History of tobacco use V9 CURRENT TOBACCO USER 06/14/2014 [facility] History of tobacco use V9 QUIT TOBACCO >7 YEARS AGO 02/25/2011 [facility] History of tobacco use V9 CURRENT TOBACCO USER 01/30/2010 [facility] History of tobacco use V9 QUIT TOBACCO IN THE LAST 12 MONTHS 04/04/2009 [facility] History of tobacco use V9 CURRENT TOBACCO USER 06/03/2008 [facility] History of tobacco use V9 CURRENT TOBACCO USER 03/03/2007 [facility] History of tobacco use V9 CURRENT TOBACCO USER 01/28/2007 [facility] History of tobacco use HF V9 CURRENT NON-SMOKER 03/11/2005 1988 [facility] History of tobacco use HF V9 LIFETIME NON-SMOKER 09/29/2001 [facility] This section is an empty social history section. [employer]
--- OUTSIDE RECORDS SUMMARY | 2025-01-15 09:09 | XMS_ITS | Clinical Summary ---
Author Organization Healthcare Address [address] [place] [address] Care Team Providers Care Alarm Installation Technician Name Role Phone Fer Roman MD Primary Care Provider Allergies Active Allergy Reactions Criticality Noted Date Comments Penicillins Itching Medium 05/22/2023 Vancomycin Other - please docum ent in the comment field Low 06/13/2007 Erythema Medications amLODIPine (Norvasc) 10 MG tablet Take 1 tablet (10 mg) by mouth 1 (one) time each day. 02/07/2023 Active atorvastatin (Lipitor) 40 MG tablet Take 1 tablet (40 mg) by mouth 1 (one) time each day. 03/03/2023 Active losartan (Cozaar) 100 MG tablet Take 1 tablet (100 mg) by mouth 1 (one) time each day. 03/03/2023 Active omeprazole (PriLOSEC) [address] capsule Take by mouth 1 (one) time each day. 03/10/2023 Active Active Problems Problem Noted Date Diagnosed Date Stage 3 chronic kidney disease 02/20/2024 Acute idiopathic gout of left ankle 02/20/2024 Hypertensive chronic kidney disease with stage 1 through stage 4 chronic kidney disease, or unspecified chronic kidney disease 02/20/2024 Chronic kidney disease-mineral and bone disorder (CKD-MBD) 02/20/2024 Obesity (BMI 35.0-39.9 without comorbidity) 07/17 Resolved Problems Problem Noted Date Diagnosed Date Resolved Date Acute left ankle pain 02/20/20242024 Immunizations Immunization Administration Dates Next Due Influenza, High-dose, Split Virus, Trivalent, Injectable, preservative free 03/13/2022,04/19/2020,03/10/2019 Influenza, Unspecified 02/15/2020 Influenza, high-dose, quadrivalent 03/13,04/19/2020,04/19/2020,03/10,03/10/2019 Influenza, injectable, quadr ivalent, preservative free 03/20/2018 Influenza, seasonal, injectable 02/14/2019,03/19 Influenza, seasonal, injecta ble, preservative free 03/20/2018 Pneumococcal 20-omid Conj Vaccine 02/13/2024 Pneumococcal Polysaccharide PPV23 09/06/2021 Td (adult), unspecified 06/16/1991 Tdap 12/20/2020 Tetanus Toxoid, Unspecified 06/16/2003 Social History Tobacco Use Types Packs/Day Years Used Date Smoking Tobacco: Former Cigarettes Q uit: 10/19/1987 Smokeless Tobacco: Never Tobacco Cessation:Counseling Given: Not Answered Alcohol Use Standard Drinks/Week Comments Not Currently 0 (1 standard drink = 0.6 oz pur e alcohol) Sex and Gender Information Value Date Recorded Sex Assigned at Not on file Legal Sex Male 8:40 PM EDT Gender Identity Not on file Sexual Orientation Not on file Last Filed Vital Signs Vital Sign Reading Time Taken Comments Blood Pressure 112/63 09/17/2024 9:08 AM EDT Pulse 57 09/17/2024 9:08 AM EDT Temperature 36.3 C (97.3 F) 02/20/2024 1:25 PM EDT Respiratory Rate 18 09/17/2024 9:08 AM EDT Oxygen Saturation 95% 09/17/2024 9:08 AM EDT Inhaled Oxygen Concentration - - Weight 122 kg (270 lb) 09/17/2024 9:08 AM EDT Height 182.9 cm (6') 09/17/2024 9:08 AM EDT Body Mass Index 36.62 09/17/2024 9:08 AM EDT Plan of Treatment Upcoming Encounters Date Type Department Care Team (Late st Contact Info) Description 09/30/2025 9:40 AM EDT Office Visit [facility] [address] [place] [phone] Arun Frausto MD [address] [place] [phone] Health Maintenance Due Date Last Done Comments [facility]-Depression Screening 1955 [facility]-Hepatitis C Screening 1955 [facility]-Medicare Annual Wellness (AWV) 1955 [facility]-/Child/Adol SDOH Screenings 1955 [facility]- SDOH Screenings 10/16/1971 [facility]-Adult SDOH Screenings 10/16/1971 CT Colonography 1998 Colonoscopy 1998 FIT-DNA 1998 FIT 1998 FOBT 1998 Sigmoidoscopy 1998 [facility]-Colorectal Cancer Screening 1998 [facility]-Zoster Vaccines (1 of 2) 10/16/2003 [facility]-Abdominal Aortic Aneurysm (AAA) Screening 2018 LAA-PWDKA-02 Vaccine ( - season) 2024 [facility]-Influenza Vaccine (#1) 02/14/202503/13, 03/13/2022, 04/19/2020, Additional history exists [facility]-RSV Vaccine: 60+ Years or (1 - 1-dose 75+ series) 2028 [facility]-DTaP,Tdap,and Td Vaccines (2 - Td or Tdap) 12/20/2030 12/20/2020, 06/16/1991 [facility]-Pneumococcal Vaccine: 50+ Years Completed 02/13/2024, 09/06/2021 [facility]-Obesity Intervention Completed 025, 02/20/2024, 07/28/2023, Additional history exists HPV Vaccines Aged Out No longer eligi ble based on patient's age to complete this topic [facility]-HIB Vaccines Aged Out No longer e ligible based on patient's age to complete this topic [facility]-Hepatitis A Vaccines Aged Out No longer eligible based on patient's age to complete this topic [facility]-IPV Vaccines Aged Out No longer e ligible based on patient's age to complete this topic [facility]-Rotavirus Vaccines Aged Out No lo nger eligible based on patient's age to complete this topic Insurance MEDICARE Member Subscriber Plan / Payer (Ef fective 2018-Present) Name:Mukund Rainey Member ID:[id number] Relation to Subscriber:Self Name:Mukund Rainey Subscriber ID:[id number] Payer ID:MEDICARE Group ID:Not on file Type:Medicare Address: [address] Care Teams Alarm Installation Technician Relationship Specialty Start Date End Date Fer Roman MD [address] [place] [address] PCP - General Internal Medicine 05/22/23
--- OUTSIDE RECORDS SUMMARY | 2025-01-15 09:09 | XMS_ITS | Encounter Summary ---
Author Organization Healthcare Address [address] [id number] Care Team Providers Care Crystallography Teacher Name Role Phone Fer Roman MD Primary Care Provider [phone] Reason for Referral * Consultation (Routine) - Closed Specialty Diagnoses / Procedures Referred By Kumar patrick Referred To Contact Nephrology Diagnoses Elevated creatine kinase Gross hematuria Veronica Fry, SCHOOL PHYSICAL THERAPIST [address] [id number] Phone: tel: fax: [address] [phone] Phone: tel: Referral ID Status Reason Start Date Expiration Date V isits Requested Visits Authorized Closed Specialty Services Required 05/01/2023 10/30/2024 1 1 Encounter Details Date Type Department Care Team (Late st Contact Info) Description 05/01/2023 Community [facility] [address] [place] [phone] Veronica Fry, SCHOOL PHYSICAL THERAPIST [address] [place] [address] Elevated creatine kinase (Primary Dx); Gross hematuria Social History Tobacco Use Types Packs/Day Years Used Date Smoking Tobacco: Never Assessed Sex and Gender Information Value Date Recorded Sex Assigned at Not on file Legal Sex Male 8:40 PM EDT Gender Identity Not on file Sexual Orientation Not on file documented as of this encounter Plan of Treatment Upcoming Encounters Date Type Department Care Team (Late st Contact Info) Description 09/30/2025 9:40 AM EDT Office Visit [facility] [address] [place] [address] [address] [place] [phone] Arun Frausto MD [address] [place] [phone] Scheduled Referrals Name Type Priority Associated Diagnoses Order Schedule Ambulatory referral to Nephrology Outpatient Referral Routine Elevated creatine kinase Gross hematuria Ordered: 05/01/2023 documented as of this encounter Visit Diagnoses Diagnosis Elevated creatine kinase- Primary Other nonspecific abnormal serum enzyme levels Gross hematuria documented in this encounter Care Teams Crystallography Teacher Relationship Specialty Start Date End Date Fer Roman MD [address] [place] [address] PCP - General Internal Medicine 05/22/23 documented as of this encounter
--- OUTSIDE RECORDS SUMMARY | 2025-01-15 09:09 | XMS_ITS | Encounter Summary ---
Author Organization Healthcare Address [address] [place] [address] Care Team Providers Care Radio Disc Jockey Name Role Phone Fer Roman MD Primary Care Provider [phone]- [phone] Encounter Details Date Type Department Care Team (Late st Contact Info) Description 05/01/2023 [facility] [address] [place] [phone] Fer Roman MD [address] [place] [phone] Social History Tobacco Use Types Packs/Day Years [...] Description 09/30/2025 9:40 AM EDT Office Visit [facility] [address] [place] [phone] Arun Frausto MD [address] [place] [phone] documented as of this encounter Visit Diagnoses Not on filedocumented in this encounter Care Teams Radio Disc Jockey Relationship Specialty Start Date End Date Fer Roman MD [address] [place] [address] PCP - General Internal Medicine 05/22/23 documented as of this encounter
[2025-01-15 09:19] LABS: Albumin Level 3.7 g/dl (3.5-5.0); Chloride 101 mmol/L (98-107); Sodium 137 mmol/L (136-145)
[2025-01-15 09:20] LABS: Hematocrit 49.1 % (42.0-52.0); Hemoglobin 16.6 g/dL (14.1-18.0); Immature Granulocytes % 0.2 %; Mean Corpuscular HGB Conc 33.8 g/dL (31.8-35.4); Mean Corpuscular Hemoglobin 30.0 pg (27.0-31.2); Mean Corpuscular Volume 88.6 fl (80-94); Nucleated Red Blood Cells % 0 %; Platelet Count 237 K/mm3 (142-424); Potassium 4.3 mmoL/L (3.5-5.1); Red Blood Count 5.54 M/mm3 (4.60-6.20); Red Cell Distribution Width-SD 41.3 fL; White Blood Count 8.9 K/mm3 (4.8-10.8)
[2025-01-15 09:22] LABS: Alanine Aminotransferase 47 U/L (12-78); Albumin/Globulin Ratio 1.0 (1.1-1.8); Alkaline Phosphatase 97 U/L (38-126); Anion Gap 11.3 mEq/L (5-15); Aspartate Amino Transferase 47 U/L (17-59); Bilirubin,Total 0.7 mg/dl (0.2-1.3); Blood Urea Nitrogen 20 mg/dl (9-20); Carbon Dioxide 29 mmol/L (22.0-30.0); Creatinine Clearance Estimated 105 mL/min (50-200); Creatinine,Serum 1.10 mg/dl (0.66-1.25); Estimated Glomerular Filt Rate 66 ml/min (>60); GFR (African American) 80 ML/MIN (>60); Globulin 3.6 g/dL (1.3-3.2); Total Protein,Serum 7.3 g/dl (6.3-8.2)
[2025-01-15 09:23] LABS: Calcium 9.9 mg/dl (8.4-10.2); Glucose 134 mg/dl (74-100); Magnesium 2.0 mg/dl (1.6-2.3)
[2025-01-15] MEDS: ACETAMINOPHEN 500MG TAB 1000 MG PO (09:26)
[2025-01-15 09:28] LABS: D-Dimer 0.48 ug/mL (0.0-0.5)
[2025-01-15 09:32] LABS: NT Pro Brain Natriuretic Pep. 71.9 pg/mL (0-125)
[2025-01-15 09:59] LABS: Troponin I < 0.01 ng/ml (0.00-0.034)
[2025-01-15] MEDS: METHOCARBAMOL 500MG TABLET 1000 MG PO (10:37)
[2025-01-15 10:42] LABS: Hepatitis C Ab Qual. W/ RFX NEGATIVE (Negative)
[2025-01-15 12:21] LABS: Troponin I < 0.01 ng/ml (0.00-0.034)
== END 2025-01-15 12:56 | disposition home or self-care (01) ==
PROVIDERS: Emergency Provider Student in an Organized Health Care Education/Training Program
DX: R07.9 Chest pain, unspecified (principal); E78.5 Hyperlipidemia, unspecified; G47.33 Obstructive sleep apnea (adult) (pediatric); I10 Essential (primary) hypertension; M10.9 Gout, unspecified
CPT/HCPCS: 71046; 80053; 83735; 83880; 84484; 85025; 85378; 86803; 87389; 93005; 99285